=== PATIENT | male | born 1955 | race Caucasian/White ===

== ENCOUNTER 2018-01-15 19:21 | Emergency (ER) | payer BC, SELFPAY ==
[2018-01-15 19:29] VITALS: BP 151/87; PULSE 75; RESP 18; TEMP 36.7; O2SAT 97
--- NOTE | 2018-01-15 19:54 | W.ED.GENAD ---
Discharge Plan Disposition Patient Disposition: HOME Condition: Stable Discharge Details Chief Complaint: Laceration Clinical Impression: Puncture wound of hand, left Primary Care Provider: Anurag Mason ED Provider: Augustus Barnes Home Meds and New Rx's Prescriptions: New amoxicillin-pot clavulanate [Augmentin] 875-125 mg tablet 1 tab PO BID Qty: 10 RF: 0 Continue multivitamin [Daily Multi-Vitamin] 1 EACH tablet 1 ea PO DAILY RF: 0 cholecalciferol (vitamin D3) 1,000 UNIT capsule 3,000 unit PO DAILY RF: 0 tnjqvkav-sgopk-xnw 2-C-D3-kalie [Cdfgdoob-Pclqzs-EDL with vit D] 1 EACH tablet 1 ea PO DAILY RF: 0 fluoxetine 20 MG capsule 20 mg PO DAILY Qty: 90 RF: 3 turmeric root extract 1 EACH capsule 1 ea PO DAILY RF: 0 Discharge Instructions Instructions: Puncture Wound (ED) Discharge Data Discharge Physician: Augustus Barnes Medical Decision Making Patient comes in with left hand discomfort. He states around 10am he was drilling and it slipped and caused him to go into the web space between left thumb and index finger. Dneies hitting bone. He washed it out, had some swelling tonight so came here for concern of possible infection. No discharge and has no redness no exam. HAs no pain over the bone so doubt injury to the bone and full rom so doubt tendon injury. Doesn't appear infected but will provide abx in case he has redness that develops or discharge. Differential Diagnosis puncture wound, cellulitis HPI General Mode of arrival: ambulatory. Date/Time Provider Initiated Documentation: 01/15/18 19:41. Limitations to Documentation: no limitations. Information obtained by: patient. History of Present Illness 62 year old M presents to the emergency department with the chief complaint of left hand injury, described as moderate, with intensity rated at 3. Quality is described as aching, and is localized to the left and upper extremity. Patient reports no radiation. Patient started experiencing this hour(s) (10) and it has been constant. No relieving factors improve symptom(s), No exacerbating factors reported . Patient notes no other symptoms.. Patient did receive the following treatments prior to arrival, none Related Data Home Medications Medication Instructions Recorded Confirmed cholecalciferol (vitamin D3) 3,000 unit PO DAILY 07/31/13 12/02/14 mubvrguw-qzula-akr 2-C-D3-kalie 1 ea PO DAILY 07/31/13 12/02/14 [Oqitovzk-Cyxewx-INJ with vit D] multivitamin [Daily Multi-Vitamin] 1 ea PO DAILY 07/31/13 12/02/14 fluoxetine 20 mg PO DAILY #90 cap 06/20/17 turmeric root extract 1 ea PO DAILY 08/16/17 amoxicillin-pot clavulanate 1 tab PO BID #10 tab 01/15/18 [Augmentin] Previous Rx's Medication Instructions Recorded fluoxetine 20 mg PO DAILY #90 cap 06/20/17 amoxicillin-pot clavulanate 1 tab PO BID #10 tab 01/15/18 [Augmentin] Allergies Allergy/AdvReac Type Severity Reaction Status Date / Time No Known Drug Allergies Allergy Unverified 08/16/17 13:38 General Stated Complaint: Laceration LYNDSAY: 4 Review of Systems Review of Systems All systems reviewed & are unremarkable except as noted in HPI and below Constitutional Denies chills and Denies fever(s) Cardiovascular Denies chest pain and Denies dyspnea Respiratory Denies dyspnea Gastrointestinal Denies vomiting Allergic/Immunologic Reports urticaria PFSH Family History Mother No problems noted. Father No problems noted. Sister Bipolar 1 disorder Sister Asthma Sister No problems noted. Social History Smoking/Tobacco Use Status: Never Surgical History repair fx right small finger fx (03/26/16) Exam Const General: no acute distress Orientation: alert HENMT Head: normal to inspection Ears: external ears normal General nose exam: external nose normal Mouth: moist mucous membranes Eyes General: appearance normal, both eyes and all related structures Neck Neck: normal visual inspection Resp Effort & Inspection: normal respiratory effort and able to speak in complete sentences Cardio Rate: regular rate Skin General skin exam: no rashes or lesions noted Neuro General: alert and oriented x3 Extrem General: normal capillary refill and other (small 0.5cm puncture wound on posterior left hand in web space between thumb and index finger, no redness, full rom and no pain over the bones) Psych Mental Status: mental status grossly normal Course Vital Signs Temperature 36.7 C 01/15/18 19:29 Pulse 75 01/15/18 19:29 Respiratory Rate 18 01/15/18 19:29 Blood Pressure 151/87 H 01/15/18 19:29 Pulse Oximetry 97 01/15/18 19:29 Temperature 36.7 C 01/15/18 19:29 Temperature Source Temporal Artery Scan 01/15/18 19:29 Pulse 75 01/15/18 19:29 Respiratory Rate 18 01/15/18 19:29 Respiratory Effort 01/15/18 19:31 Blood Pressure 151/87 H 01/15/18 19:29 Blood Pressure Position Sitting 01/15/18 19:29 Pulse Oximetry 97 01/15/18 19:29 Oxygen Delivery Method Room Air 01/15/18 19:29 Oxygen Flow Rate 0 01/15/18 19:29
--- NOTE | 2018-01-15 19:58 | ED.GENADUL_ITS ---
Discharge Plan Disposition Patient Disposition: HOME Condition: Stable Discharge Details Chief Complaint: Laceration Clinical Impression: Puncture wound of hand, left Primary Care Provider: Anurag Mason ED Provider: Augustus Barnes Home Meds and New Rx's Prescriptions: New amoxicillin-pot clavulanate [Augmentin] 875-125 mg tablet 1 tab PO BID Qty: 10 RF: 0 Continue multivitamin [Daily Multi-Vitamin] 1 EACH tablet 1 ea PO DAILY RF: 0 cholecalciferol (vitamin D3) 1,000 UNIT capsule 3,000 unit PO DAILY RF: 0 dybnwsxe-yqqoo-jky 2-C-D3-kalie [Sptxxsyg-Djzzsv-TYO with vit D] 1 EACH tablet 1 ea PO DAILY RF: 0 fluoxetine 20 MG capsule 20 mg PO DAILY Qty: 90 RF: 3 turmeric root extract 1 EACH capsule 1 ea PO DAILY RF: 0 Discharge Instructions Instructions: Puncture Wound (ED) Discharge Data Discharge Physician: Augustus Barnes Medical Decision Making Patient comes in with left hand discomfort. He states around 10am he was drilling and it slipped and caused him to go into the web space between left thumb and index finger. Dneies hitting bone. He washed it out, had some swelling tonight so came here for concern of possible infection. No discharge and has no redness no exam. HAs no pain over the bone so doubt injury to the bone and full rom so doubt tendon injury. Doesn't appear infected but will provide abx in case he has redness that develops or discharge. Differential Diagnosis puncture wound, cellulitis HPI General Mode of arrival: ambulatory . Date/Time Provider Initiated Documentation: 01/15/18 19:41 . Limitations to Documentation: no limitations . Information obtained by: patient . History of Present Illness 62 year old M presents to the emergency department with the chief complaint of left hand injury, described as moderate, with intensity rated at 3. Quality is described as aching, and is localized to the left and upper extremity. Patient reports no radiation. Patient started experiencing this hour(s) (10) and it has been constant. No relieving factors improve symptom( s), No exacerbating factors reported . Patient notes no other symptoms.. Patient did receive the following treatments prior to arrival, none Related Data Home Medications Medication Instructions Recorded Confirmed cholecalciferol (vitamin D3) 3,000 unit PO DAILY 07/31/13 12/02/14 jwloviag-jisim-frm 2-C-D3-kalie 1 ea PO DAILY 07/31/13 12/02/14 [Kgwnknwf-Kabwrg-CIF with vit D] multivitamin [Daily Multi-Vitamin] 1 ea PO DAILY 07/31/13 12/02/14 fluoxetine 20 mg PO DAILY #90 cap 06/20/17 turmeric root extract 1 ea PO DAILY 08/16/17 amoxicillin-pot clavulanate 1 tab PO BID #10 tab 01/15/18 [Augmentin] Previous Rx's Medication Instructions Recorded fluoxetine 20 mg PO DAILY #90 cap 06/20/17 amoxicillin-pot clavulanate 1 tab PO BID #10 tab 01/15/18 [Augmentin] Allergies Allergy/AdvReac Type Severity Reaction Status Date / Time No Known Drug Allergies Allergy Unverified 08/16/17 13:38 General Stated Complaint: Laceration LYNDSAY: 4 Review of Systems Review of Systems All systems reviewed & are unremarkable except as noted in HPI and below Constitutional Denies chills and Denies fever(s) Cardiovascular Denies chest pain and Denies dyspnea Respiratory Denies dyspnea Gastrointestinal Denies vomiting Allergic/Immunologic Reports urticaria PFSH Family History Mother No problems noted. Father No problems noted. Sister Bipolar 1 disorder Sister Asthma Sister No problems noted. Social History Smoking/Tobacco Use Status: Never Surgical History repair fx right small finger fx (03/26/16) Exam Const General: no acute distress Orientation: alert HENMT Head: normal to inspection Ears: external ears normal General nose exam: external nose normal Mouth: moist mucous membranes Eyes General: appearance normal, both eyes and all related structures Neck Neck: normal visual inspection Resp Effort & Inspection: normal respiratory effort and able to speak in complete sentences Cardio Rate: regular rate Skin General skin exam: no rashes or lesions noted Neuro General: alert and oriented x3 Extrem General: normal capillary refill and other (small 0.5cm puncture wound on posterior left hand in web space between thumb and index finger, no redness, full rom and no pain over the bones) Psych Mental Status: mental status grossly normal Course Vital Signs Temperature 36.7 C 01/15/18 19:29 Pulse 75 01/15/18 19:29 Respiratory Rate 18 01/15/18 19:29 Blood Pressure 151/87 H 01/15/18 19:29 Pulse Oximetry 97 01/15/18 19:29 Temperature 36.7 C 01/15/18 19:29 Temperature Source Temporal Artery Scan 01/15/18 19:29 Pulse 75 01/15/18 19:29 Respiratory Rate 18 01/15/18 19:29 Respiratory Effort 01/15/18 19:31 Blood Pressure 151/87 H 01/15/18 19:29 Blood Pressure Position Sitting 01/15/18 19:29 Pulse Oximetry 97 01/15/18 19:29 Oxygen Delivery Method Room Air 01/15/18 19:29 Oxygen Flow Rate 0 01/15/18 19:29
[2018-01-15 20:08] VITALS: BP 138/80; PULSE 68; RESP 18; TEMP 36.8; O2SAT 99
== END 2018-01-15 20:08 | disposition home or self-care (01) ==
PROVIDERS: Emergency Provider Emergency Medicine; PCP Family Medicine
DX: S61.432A Puncture wound without foreign body of left hand, initial encounter (principal); W31.1XXA Contact with metalworking machines, initial encounter
CPT/HCPCS: 99283

== ENCOUNTER 2018-04-21 11:12 | Outpatient (CLI) | payer BC, SELFPAY ==
[2018-04-21 11:56] LABS: Bilirubin Negative (Negative); Blood Trace-intact (Negative); Clarity Clear; Glucose Negative (Negative); Ketones Negative (Negative); Leukocyte Esterase Negative (Negative); Nitrite Negative (Negative); Urobilinogen 0.2 EU/dL (Up TO 0.2); pH 5.5 (5-8)
[2018-04-21 12:36] LABS: Bacteria Rare HPF (Negative); C & S Indicated? No; Casts Negative LPF (Negative); Crystals Negative HPF (Negative); Epithelial Cells Rare HPF (Negative); Mucus Trace (Negative); WBC Negative HPF (0-5)
== END 2018-04-21 11:32 ==
PROVIDERS: PCP Family Medicine; Visit Provider Family Medicine
DX: N39.0 Urinary tract infection, site not specified (principal)
CPT/HCPCS: 81003; 81015

== ENCOUNTER 2018-10-10 12:04 | Outpatient (REF) | payer BC, SELFPAY ==
[2018-10-16 15:05] LABS: Source: Kidney
== END 2018-10-10 12:24 ==
LOC: LBN 12:04
PROVIDERS: PCP Nurse Practitioner; Visit Provider Nurse Practitioner
DX: N20.0 Calculus of kidney (principal)
CPT/HCPCS: 82365

== ENCOUNTER 2018-12-08 08:08 | Outpatient (CLI) | payer BC, SELFPAY ==
[2018-12-08 09:53] LABS: ALT 36 U/L (16-63); AST 22 U/L (15-37); Albumin 3.6 g/dL (3.4-5.0); Alkaline Phosphatase 65 U/L (46-116); Anion Gap 6.7 mmol/L (3-11); BUN 17 mg/dL (7-18); Bilirubin, Total 0.2 mg/dL (0.2-1.0); CO2 30.3 mmol/L (21.0-32.0); CREATININE 1.04 mg/dL (0.70-1.30); Calcium 8.9 mg/dL (8.5-10.1); Calculated LDL 170 mg/dL; Chloride 105 mmol/L (98-107); Cholesterol 243 mg/dL (50-200); Glucose 93 mg/dL (70-100); HDL Cholesterol 46 mg/dL (40-60); Potassium 4.3 mmol/L (3.5-5.1); Sodium 142 mmol/L (136-145); Total Protein 7.2 g/dL (6.4-8.2); Triglyceride 136 mg/dL (30-150)
== END 2018-12-08 08:28 ==
PROVIDERS: PCP Nurse Practitioner; Visit Provider Nurse Practitioner
DX: E78.5 Hyperlipidemia, unspecified (principal)
CPT/HCPCS: 36415; 80053; 80061

== ENCOUNTER 2018-12-08 08:22 | Outpatient (REF) | payer BC, SELFPAY ==
[2018-12-08 11:04] LABS: Creatinine,Urine 155.43 mg/dL; Sodium, Urine 140 mmol/L
[2018-12-08 11:06] LABS: Creatinine,24hr Ur 1.55 g/24hr (0.95-2.49); Total Volume 1025 ml
[2018-12-08 11:07] LABS: CLEAVED CELLS 144 mmol/24h (40-220); Total Volume 1025 ml
[2018-12-09 09:17] LABS: Magnesium 24hr Urine 136.3 mg/24h (73.0-122.0); Magnesium Random Urine 13.3 mg/dl; Phosphorus Urine 83.5 mg/dl; Phosphorus Urine 24hr 0.9 g/24h (0.4-1.3); Uric Acid Urine 52.2 mg/dl; Uric Acid Urine 24hr 535 mg/24h (250-750)
[2018-12-09 09:21] LABS: Calcium Urine 20.8 mg/dl; Calcium Urine 24 hr 213 mg/24hr (100-300)
[2018-12-09 17:07] LABS: Citrate Excretion, 24hr, U 449 mg/24 h; Urine Volume 1025 mL
[2018-12-09 19:19] LABS: Oxalate Conc (mmol/L) 0.17 mmol/L; Oxalate, U 0.17 mmol/24 h (0.11-0.46); Urine Volume 1025 mL
== END 2018-12-08 08:42 ==
LOC: LBN 08:22
PROVIDERS: Nurse Practitioner Gerontology; PCP Nurse Practitioner; Visit Provider Nurse Practitioner
DX: Z87.442 Personal history of urinary calculi (principal)
CPT/HCPCS: 82507; 83735; 81050; 82340; 82570; 83945; 84105; 84300; 84560

== ENCOUNTER 2020-06-27 02:31 | Outpatient (CLI) | payer BC, SELFPAY ==
[2020-06-27 09:02] LABS: ALT 34 U/L (16-63); AST 23 U/L (15-37); Albumin 3.4 g/dL (3.4-5.0); Alkaline Phosphatase 60 U/L (46-116); Anion Gap 5.2 mmol/L (3-11); BUN 16 mg/dL (7-18); Bilirubin, Total 0.4 mg/dL (0.2-1.0); CO2 28.8 mmol/L (21.0-32.0); Calcium 8.5 mg/dL (8.5-10.1); Calculated LDL 173 mg/dL (<100); Chloride 106 mmol/L (98-107); Cholesterol 237 mg/dL (<200); Glucose 90 mg/dL (74-106); HDL Cholesterol 48 mg/dL (40-60); Sodium 140 mmol/L (136-145); TSH (W/Ref FT4) 2.95 uIU/mL (0.36-3.74); Total Protein 6.8 g/dL (6.4-8.2); Triglyceride 80 mg/dL (<150)
== END 2020-06-27 02:32 | disposition home or self-care (01) ==
LOC: LBO 02:31
PROVIDERS: PCP Nurse Practitioner; Visit Provider Nurse Practitioner
DX: Z00.00 Encounter for general adult medical examination without abnormal findings (principal); L85.3 Xerosis cutis; Z13.220 Encounter for screening for lipoid disorders
CPT/HCPCS: 36415; 80053; 80061; 84443

== ENCOUNTER 2020-11-21 07:13 | Day surgery (SDC) | payer MEDICARE, SELFPAY ==
--- NOTE | 2020-11-20 14:59 | PDOC.DSDIS_ITS ---
Discharge Plan Disposition Patient Disposition: HOME Condition: Good Discharge Details Reason For Visit: colon scope Attending Provider: Shira Rivas Primary Care Provider: Lindsay Rendon Home Meds and New Rx's Prescriptions: Continued cholecalciferol (vitamin D3) 125 mcg (5,000 unit) capsule 125 mcg PO DAILY RF: 0 glucosamine sulfate 2KCl [Glucosamine Relief] 1,000 mg tablet 1,000 mg PO BID RF: 0 bergamot capsule 1 cap PO BID RF: 0 multivitamin [Daily Multi-Vitamin] 1 EACH tablet 1 ea PO DAILY RF: 0 fluoxetine 20 mg capsule 20 mg PO DAILY Qty: 90 RF: 3 niacin [Niaspan Extended-Release] 500 mg tablet extended release 24 hr 500 mg PO DAILY Qty: 90 RF: 3 Discontinued polyethylene glycol 3350 17 gram/dose powder 238 g PO ONCE Qty: 238 RF: 0 bisacodyl [Dulcolax (bisacodyl)] 5 mg tablet,delayed release (DR/EC) 5 mg PO ONCE Qty: 4 RF: 0 Discharge Instructions Additional Instructions: DSU Colonoscopy Post- Op Instructions Instructions for Everyone who is given Anesthesia: For your safety, please do the following for the next twenty-four (24) hours: *Do Not operate a motor vehicle (car, truck, motorcycle, etc.) *Do Not drink alcoholic beverages or use any recreational drugs for the first 24 hours or while taking pain medications. The medications in your body may have a reaction that can be dangerous. *Do Not make any important decisions or sign any important papers. Findings: Very few small scattered diverticula in the sigmoid colon. Otherwise normal Follow up: If still healthy for anesthesia, repeat colonoscopy in 10 years time 1. No lifting over 20 pounds or strenuous activity for the first 24 hours after your procedure. After 24 hours there are no restrictions on your activity but you may feel fatigued for a few days. 2. After you arrive home you may have a light meal and return to your normal diet as you can tolerate it without feeling sick to your stomach. 3. You may have a bloated, gaseous feeling in your belly (abdomen) after a colonoscopy. Passing gas and belching will help. Walking or lying down on your left side with your knees flexed may relieve the discomfort. Call the office at [phone] (Office) or [phone] (Hospital) right away if you notice any of the following: a.Vomiting of blood or ?coffee ground stools?. b.Rectal bleeding 1Tbsp, blood clots or continuous bleeding. c.Severe belly (abdominal) pain. d.A hard distended belly (abdomen) and an inability to pass gas. 4. Please don?t expect to have a normal BM (bowel movement) for 2-3 days after your procedure. 5. If there are questions regarding the findings of your procedure, please contact your doctor 6. If you are unable to contact your doctor with a problem, contact the hospital at [phone]. 7. Continue all your regular medications unless directed otherwise. I understand the above instructions and have no questions. Signature of Patient or Adult Escort Name of Responsible Adult Escort Signature of Nurse Date/Time Activity:: see above Diet:: see above Discharge Orders Discharge Orders: Discharge Order (Routine); Ordered 11/20/20 Ordered By: Shira Rivas DS: Diagnosis Discharge Diagnosis (1) Diverticula of colon: Status: Acute
--- NOTE | 2020-11-20 14:59 | W.COLOREPORT ---
Date of service: 11/21/20 Time of Service: 08:45 Colonoscopy Report Date of procedure: 11/21/20 Pre-op diagnosis general: screen Post-op diagnosis procedure note: other Surgeon: Shira Rivas Anesthesia Type: General:No Airway Estimated blood loss (mL): 0 Pathology: none sent Complications: None Disposition: same day Prep: Miralax/Dulcolax Retraction Time: 8 Procedure Description: After informed consent was obtained the patient was taken to the procedure room and placed in a left decubitous position. Monitors were applied and a time out was done. The patients name, date of , procedure, allergies to medications and metal in their body was reviewed. The patient was then sedated. Once sedated and comfortable a rectal exam was done. External exam-small external tag internal exam revealed a normal sphincter tone and no palpable masses. The scope was then introduced and retrofelexed. No without good internal hemorrhoids were identified. The scope was then advanced to the cecum difficulty. The TI and appendiceal orifice were identified. The prep was done. The scope was then slowly retracted 8 minutes back into the rectum. There are no polyps or AVMs visualized today. He has a few small scattered diverticula in the sigmoid colon of no consequence. There is no signs of active bleeding or infection.. The scope was removed and the patient was woken up and taken back to Same day surgery in stable condition. The patient tolerated the procedure well and there were no immediate complications. Follow up: The patient should follow up in 10 years, if still healthy for anesthesia, unless they develop changes in bowel habits or other new gastrointestinal complaints.
--- NOTE | 2020-11-20 19:03 | W.ANESPRE ---
General Info Date of Service Date Performed: 11/21/20 Height: 5 ft 5.5 in Weight: 63.673 kg Body Mass Index (BMI): 23.0 Surgical Procedure: Operation Date: 11/21/20 08:20 Proposed Procedures Side Surgeon elisa Rivas, DO Meds Allergies and Home Medications Allergies Allergy/AdvReac Type Severity Reaction Status Date / Time No Known Drug Allergies Allergy Verified 11/21/20 07:29 Home Medication Medication Instructions Recorded multivitamin [Daily Multi-Vitamin] 1 ea PO DAILY 07/31/13 fluoxetine 20 mg capsule 20 mg PO DAILY #90 cap 01/07/20 niacin 500 mg tablet,extended 500 mg PO DAILY #90 tab 09/30/20 release 24 hr bergamot 1 cap PO BID 10/31/20 bisacodyl 5 mg tablet,delayed 5 mg PO ONCE #4 tab 10/31/20 release cholecalciferol (vitamin D3) 125 125 mcg PO DAILY 10/31/20 mcg (5,000 unit) capsule glucosamine sulfate 2KCl 1,000 mg 1,000 mg PO BID 10/31/20 tablet polyethylene glycol 3350 17 238 g PO ONCE #238 g 10/31/20 gram/dose oral powder Current Visit Medications: Current Medications Generic Name Dose Route Start Last Admin Trade Name Freq PRN Reason Stop Dose Admin Hyoscyamine Sulfate 0.125 mg 11/20/20 14:59 Hyoscyamine 0.125 Mg Sl/Oral/Chew SL DIRECTED PRN Ringer's Solution 1,000 mls @ 80 mls/hr 11/21/20 06:00 IV 12/20/20 23:59 [facility] IV Miscellaneous Supplies 1 each 11/21/20 06:00 Iv Access IV 12/20/20 23:59 DIRECTED JUDITH Ondansetron HCl 4 mg 11/20/20 14:59 Ondansetron 4 Mg/2 Ml Vial IVP Q4H PRN PRN Nausea / Vomiting Sodium Chloride 0 ml 11/21/20 06:00 Normal Saline Flush 10 Ml Syr IV 12/20/20 23:59 PRN PRN Sodium Chloride 0 ml 11/21/20 06:00 Normal Saline 10 Ml Vial IJ 12/20/20 23:59 DIRECTED PRN Sterile Water 0 ml 11/21/20 06:00 Water,Injection,Sterile 10 Ml Vial IJ 12/20/20 23:59 DIRECTED PRN PFSH Active Problems Active Problems: Problem Status Onset Code Dry skin L85.3 Screening, lipid Z13.220 Colon cancer screening Z12.11 Routine medical exam Z00.00 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 Kidney stones, calcium oxalate Encounter for routine history and physical examination 02/08/12 Z00.00 Sensorineural hearing loss (SNHL) of both ears 01/08/16 H90.3 Other and unspecified hyperlipidemia 04/03/99 E78.5 Anxiety state, unspecified 11/16/06 F41.1 Medical History Medical History (Updated 11/21/20 @ 07:30 by Junie Hawk RN) Anxiety state, unspecified (11/16/06) Generalized Anxiety Disorder; fluoxetine effective Epicondylitis, medial humeral Left Nasal septal defect surgery Other and unspecified hyperlipidemia (04/03/99) 6% risk, goal LDL <130, rx if >190: lifestyle Sensorineural hearing loss (SNHL) of both ears (01/08/16) Tip Farmer, ENT Surgical History Surgical History repair fx right small finger fx (03/26/16) Tobacco Smoking/Tobacco Use Status: Never Passive smoking exposure: Yes (childhood parents until age 18) Alcohol Alcohol Intake: never Substance Use Substance use: Never Substance use type: does not use Vital Signs and Lab Results Vital Signs Most Recent Vital Signs in EMR: Temp Pulse Resp BP Pulse Ox 36.0 C L 61 15 134/95 H 95 11/21/20 07:24 11/21/20 07:24 11/21/20 07:24 11/21/20 07:24 11/21/20 07:24 Lab Results Blood Type / Crossmatch: No Data to Display Complete Blood Count: No Data to Display Complete Metabolic Panel: No Data to Display Liver Function Panel: No Data to Display Coagulation Panel: No Data to Display Cardiac Panel: No Data to Display Arterial Blood Gas: No Data to Display Venous Blood Gas: No Data to Display Pancreas Panel: No Data to Display Thyroid Panel: No Data to Display Infectious Disease: No Data to Display Blood Cultures: No Data to Display Toxicology Panel: No Data to Display Anesthesia Assessment and Plan Anesthesia History Personal History: No History of Anesthesia Complications Family History: No Family History of Anesthesia Complications Exercise Tolerance Exercise Tolerance: Metabolic Equivalents>4 Pertinent Negatives Pertinent Negatives: No Symptoms of GERD, No Major Cardiovascular Symptoms or Complaints, No Major Pulmonary Symptoms or Complaints and No History of CVA/TIA Cardiac & Pulmonary Exam Cardiac Exam: Normal S1/S2 Heart Sounds Pulmonary Exam: Clear Bilateral Breath Sounds Airway Exam Known Difficult Airway: No Mallampati Class: 1 Mouth Opening: Normal (> 3cm) Thyromental Distance: Less than 3 cm Neck Range of Motion: Full ROM Neck Circumference: Normal Teeth Condition: Normal Dentition ASA Classification ASA Score: ASA 2 Emergency Case?: No NPO Status NPO Status: NPO Clears >2 hours, Solids >8 hours Anesthesia Plan Resuscitation Status: Full Code Anesthesia Technique: General Anesthesia Airway Planned: Natural Airway Monitors Used: Standard Monitors Preoperative Comments:: 65 yo male for screening colo. PMHX anxiety. no major hx noted.
[2020-11-21 07:24] VITALS: BP 134/95; PULSE 61; RESP 15; TEMP 36; O2SAT 95
[2020-11-21] MEDS: Lactated Ringers 1,000 ML 80 ML IV (07:40)
[2020-11-21 08:17] VITALS: BMI 23.0
[2020-11-21 08:47] VITALS: BP 101/57; PULSE 55; RESP 16; TEMP 36.8; O2SAT 96
[2020-11-21 09:24] VITALS: BP 118/77; PULSE 54; RESP 16; TEMP 36.3; O2SAT 96
--- NOTE | 2020-11-21 10:13 | W.ANESPOSTOP ---
Postoperative Evaluation Date, Time and Location Date Performed: 11/21/20 Time Performed: 09:31 Patient Location: Day Surgery Unit Vital Signs Most Recent Imported Vital Signs: Most Recent Vital Signs Temp Pulse Resp BP Pulse Ox 36.3 C L 54 L 16 118/77 96 11/21/20 09:24 11/21/20 09:24 11/21/20 09:24 11/21/20 09:24 11/21/20 09:24 Pain Score Most Recent Pain Score: Most Recent Pain Score Pain Level 0 11/21/20 09:24 Assessment Mental Status: Awake (Alert & Oriented to Patient Baseline) Airway and Respiratory Function: Patent airway with normal (patient baseline) respiratory exam Cardiovascular Function: Hemodynamically Stable Hydration Status: Adequately Hydrated Nausea & Vomiting: No Nausea or Vomiting Pain: Pt. Denies Any Pain Peripheral Nerve Block: Patient did not receive a nerve block
== END 2020-11-21 09:46 | disposition home or self-care (01) ==
PROVIDERS: PCP Nurse Practitioner; Visit Provider Surgery
PROC: 0DJD8ZZ Inspection of Lower Intestinal Tract, Via Natural or Artificial Opening Endoscopic (ICD-10-PCS; CPT 45378; principal; 2020-11-21 08:15)
DX: Z12.11 Encounter for screening for malignant neoplasm of colon (principal)
CPT/HCPCS: G0121; J2001

== ENCOUNTER 2020-12-19 02:43 | Outpatient (CLI) | payer MEDICARE, SELFPAY ==
[2020-12-19 11:15] LABS: Calculated LDL 191 mg/dL (<100); Cholesterol 260 mg/dL (<200); HDL Cholesterol 48 mg/dL (40-60); Triglyceride 109 mg/dL (<150)
[2020-12-19 17:54] LABS: PSA, Screening 0.7 ng/mL (0.0-4.5)
== END 2020-12-19 02:44 | disposition home or self-care (01) ==
LOC: LBO 02:43
PROVIDERS: PCP Nurse Practitioner; Visit Provider Nurse Practitioner
DX: E78.5 Hyperlipidemia, unspecified (principal); Z12.5 Encounter for screening for malignant neoplasm of prostate
CPT/HCPCS: 36415; 80061; 84153

== ENCOUNTER 2021-06-16 16:09 | Outpatient (CLI) | payer MEDICARE, SELFPAY ==
--- NOTE | 2021-06-16 14:30 | DI.RAD_ITS ---
Exam(s) XR SHOULDER RT COMPLETE 2+V EXAM: XR SHOULDER RT COMPLETE 2+V CLINICAL HISTORY: pain m25.511 pain rt shoulder. TECHNIQUE: 2D digital imaging was performed. Five views. COMPARISON: No exams were available for comparison FINDINGS: BONES: No acute fracture is present. No bony destructive lesion is seen. JOINTS: No dislocation present. Minimal spinal spurring AC joint and glenoid. Spurring at the lesse r tuberosity. Degenerative cyst near lesser tuberosity. Degenerative cyst in glenoid. SOFT TISSUE: Normal. IMPRESSION: Mild degenerative changes. DATA REPOSITORY: RADIATION DOSE DELIVERED:
== END 2021-06-16 16:29 ==
PROVIDERS: PCP Nurse Practitioner; Visit Provider Nurse Practitioner
DX: M25.511 Pain in right shoulder (principal); M75.81 Other shoulder lesions, right shoulder
CPT/HCPCS: 73030

== ENCOUNTER 2021-08-06 03:43 | Outpatient (CLI) | payer MEDICARE, SELFPAY ==
[2021-08-06 07:18] LABS: Abs Immature Grans 0.02 10^3/uL (0.0-0.06); Absolute Basophil Count 0.05 10^3/uL (0.0-0.2); Absolute Eosinophil Count 0.37 10^3/uL (0.0-0.7); Absolute Lymphocyte Count 2.44 10^3/uL (1.2-3.4); Absolute Monocyte Count 0.52 10^3/uL (0.1-0.8); Absolute Neutrophil Count 2.44 10^3/uL (1.2-6.7); Basophils % 0.9; Eosinophils % 6.3; HCT 48.2 % (40.0-50.0); HGB 15.8 g/dL (13.5-17.5); Immature Grans % 0.3; Lymphocytes % 41.8; MCH 31.5 pg (27.0-33.0); MCHC 32.8 % (32.0-36.0); MCV 96 fL (80-95); MPV 9.1 fL (8.0-11.0); Monocytes % 8.9; Neutrophils % 41.8; Platelet Count 228 10^3/uL (130-400); RBC 5.02 10^6/uL (4.36-5.78); RDW 12.3 % (11.8-14.1); RDW-SD 43.8 fL; WBC 5.84 10^3/uL (4.4-10.8)
[2021-08-06 08:25] LABS: ALT 34 U/L (16-63); AST 25 U/L (15-37); Albumin 3.7 g/dL (3.4-5.0); Alkaline Phosphatase 66 U/L (46-116); Anion Gap 7.2 mmol/L (3-11); BUN 15 mg/dL (7-18); Bilirubin, Total 0.4 mg/dL (0.2-1.0); CO2 30.8 mmol/L (21.0-32.0); CREATININE 1.1 mg/dL (0.70-1.30); Calcium 8.6 mg/dL (8.5-10.1); Calculated LDL 167 mg/dL (<100); Chloride 104 mmol/L (98-107); Cholesterol 242 mg/dL (<200); Glucose 93 mg/dL (74-106); HDL Cholesterol 46 mg/dL (40-60); Potassium 4.3 mmol/L (3.5-5.1); Sodium 142 mmol/L (136-145); Total Protein 7.2 g/dL (6.4-8.2); Triglyceride 148 mg/dL (<150)
== END 2021-08-06 03:44 | disposition home or self-care (01) ==
LOC: LBO 03:43
PROVIDERS: PCP Nurse Practitioner; Visit Provider Nurse Practitioner
DX: E78.5 Hyperlipidemia, unspecified (principal)
CPT/HCPCS: 36415; 80053; 80061; 85025

== ENCOUNTER 2022-01-29 23:44 | Emergency (ER) | payer MEDICARE, SELFPAY ==
--- NOTE | 2022-01-29 23:45 | RT.EKG_ITS ---
APPROVED REPORT Exam: Resting ECG Reason for Exam: chest pain Patient Location: E HR:61 bpm ECG Measurements Heart Rate [address] 192 P 55 QRSd 91 QRS 61 QT 404 T 40 QTc 408 Conclusion Sinus rhythm...normal P axis, V-rate 60- 99 Left ventricular hypertrophy...multiple voltage criteria st depression v4-5, 1mm st elev v2
[2022-01-29 23:53] VITALS: BP 199/108; PULSE 63; RESP 18; TEMP 36; O2SAT 99
[2022-01-29 23:58] VITALS: RESP 18
[2022-01-29 23:59] VITALS: BP 199/108; PULSE 61; PULSE 75; RESP 15; O2SAT 99
[2022-01-30] VITALS (28 sets, daily range): BP systolic 146–203; BP diastolic 88–108; PULSE 54–74; RESP 9–19; TEMP 36.6; O2SAT 93–100
--- NOTE | 2022-01-30 | DI.CT_ITS ---
Exam(s) CT THORAX ABD/PEL CTA EXAM: CT THORAX ABD/PEL CTA CLINICAL HISTORY: central chest pressure, hypertension. TECHNIQUE: Imaging Protocol: Axial CT angiography was performed with multi-slice acquisition and m ulti-planar and/or 3D reconstructions. CONTRAST MATERIAL: Intravenous: Omnipaque 350 contrast volume:90 mL Oral: No COMPARISON: CT ABD PELVIS WITH CONTRAST from 12/02/2014 FINDINGS: CHEST: Tracheobronchial tree: Patent where visualized. Pulmonary parenchyma: No consolidation or dominant measurable mass. No architectural distortion. Ther e is dependent atelectasis. Pulmonary Arteries: The pulmonary arteries are inadequately opacified for evaluation of pulmonary emb olic disease. Mediastinum and Damaris: No dominant adenopathy or fluid collection. The esophagus is unremarkable. Visualized thyroid: Unremarkable. Pleura: No effusion or pneumothorax. Heart: The heart is not dilated. Coronary artery calcifications and/or stents are seen. No pericardi al effusion. Aorta: Thoracic aorta non-dilated. No evidence of dissection. Mild atherosclerosis. Soft Tissues: Unremarkable. Bones: Within normal limits for the patient's age.There is an old T7 compression deformity. ABDOMEN AND PELVIS: Abdomen: Celiac axis/mesenteric arteries: No evidence of occlusion or significant stenosis. Renal Arteries: No evidence of occlusion or significant stenosis. Aorta: No evidence of occlusion or significant stenosis. No aneurysm or dissection. Mild atheroscl erosis. Pelvis: Iliac Arteries: No evidence of occlusion or significant stenosis. Mild atherosclerosis. Common Femoral Arteries: No evidence of occlusion or significant stenosis. ABDOMEN: Liver: Normal density. There are 2 stable hypodense lesions seen in the liver. The largest is anteri janusz and peripherally and is unchanged compared to 2015. These likely reflect cysts. Gallbladder and Biliary Tract: No radiodense calculus or dilation. Pancreas: Normal density, no abnormal calcifications or inflammatory process. Spleen: Normal. Adrenals: No masses seen. Kidneys: Normal size, contour and axis. Nonobstructing stone is seen in the left kidney. No masses s een. Bowel: No obstruction or bowel wall thickening. Appendix is unremarkable. Peritoneal Cavity: No ascites, collection or mesenteric inflammatory response. No free air. Lymph Nodes: Within normal limits. Bones: Within normal limits for the patient's age. Soft Tissues: Unremarkable. PELVIS: Bladder: Symmetric distention, no gross wall thickening. Reproductive Organs: Unremarkable as visualized. Lymph Nodes: Within normal limits. Bones: Within normal limits for the patient's age. IMPRESSION: 1. No evidence of aortic dissection or aneurysm. No significant arterial stenosis or occlusion. 2. No acute pulmonary process. 3. No acute abdominal or pelvic process. RADIATION DOSE DELIVERED: 840.25mGy.cm Total DLP DATA REPOSITORY: All CT scans at this facility are submitted to the National Radiology Data Registry (NRDR) Dose Index Registry (DIR) with the [employer] (ACR). RADIATION OPTIMIZATION: All CT scans at this facility use at least one of these dose optimization te chniques: automated exposure control; mA and/or kV adjustment per patient size (includes targeted exa ms where dose is matched to clinical indication); or iterative reconstruction.
--- OUTSIDE RECORDS SUMMARY | 2022-01-30 00:17 | XMS_ITS | Clinical Summary ---
:1955 Author Organization [facility] Address [facility] [place] [address] Care Team Providers Name Role Phone Lindsay Rendon APRN Primary Care Provider Allergies No known active allergies Medications Medication Sig Dispensed Refills Start Date End Date Status FLUoxetine (PROZAC) 20 0 05/08/2009 Active mg capsule niacin (NIASPAN ER) take 1 tablet by 0 01/24/2018 Active 500 mg Tablet mouth once daily Sustained Release 24 SWALLOW WHOLE DO hr NOT CRUSH,BREAK,DISSOL VE OR OPEN Social History Tobacco Use Types Packs/Day Years Used Date Never Smoker Smokeless Tobacco: Never Used Sex Assigned at Date Recorded Not on file Plan of Treatment Health Maintenance Due Date Last Done Comments Covid-19 Vaccine (#1) 05/07/1956 Hepatitis C Screening 11/04/1973 Lipid Screening 11/04/1973 Tdap adult 11/04/1974 Tetanus vaccine 11/04/1974 Colonoscopy 11/04/2000 Zoster vaccine (1 of 2) 11/04/2005 Advance Directive 11/04/2010 Pneumoccocal Vaccine: 65+ (1 - PCV) 11/04/2020 Influenza (Flu) vaccine (1 of 1 - Influenza standard 12/03/2021 series) Insurance Payer Benefit Plan / Subscriber ID Effective Dates Phone Addre ss Type Group [employer] [id number] 2019-Present [address] [place] [address] Care Teams Corn Grower Relationship Specialty Start Date End Date Lindsay Rendon, SAUL PCP - General Internal Medicine 04/18/[address] [place] [address]
--- OUTSIDE RECORDS SUMMARY | 2022-01-30 00:17 | XMS_ITS | Encounter Summary ---
:1955 Author Organization [place] [address] Care Team Providers Name Role Phone Lindsay Rendon APRN Primary Care Provider Encounter Details Date Type Department Care Team Description 06/25/2019 Public [facility] Contact with/suspected [facility] coronavirus (COVID-19) [place] [address] Social History Tobacco Use Types Packs/Day Years Used Date Never Smoker Smokeless Tobacco: Never Used Sex Assigned at Date Recorded Not on file documented as of this encounter Progress Notes Garima De Jesus APRN - 06/25/2019 1:40 PM EDT Results called to patient documented in this encounter Plan of Treatment Not on filedocumented as of this encounter Procedures Procedure Name Priority Date/Time Associated Diagnosis Comme nts HC SARS-COV-2 STAT 06/25/2019 11:00 AM Contact Results for this (COVID-19) EDT with/suspected procedure are in (MOLECULAR exposure to novel the result s PATHOLOGY) coronavirus section. (COVID-19) documented in this encounter Results COVID-19 PCR (06/25/2019 11:00 AM EDT) [facility] Method Time Signature SARS-CoV-2 Not Detected Not Detected DORIS RNA [facility] Comment: This result should be interpreted in com bination with the clinical observations, patient history and epidem iological information. Testing for SARS-CoV-2 (Severe acute respiratory syn drome coronavirus 2, formerly known as 2019 novel coronavirus or 2019-nCoV) to aid in the diagnosis of COVID-19 is performed using the Tripath[employer] RealTime SARS -CoV-2 as authorized by the FDA Emergency Use Authorization (EUA). This EUA assay is intended for In-vitro Diagnostic (IVD) use with respiratory sp ecimens such as nasopharyngeal swabs collected from individuals during the ac [place] phase of infection. This assay is performed based on the instructions for use provided by the [employer] [facility] and additional guidance provided by CDC and FDA. Testing is performed in the [facility] Laboratory within the Department of Pathology and Laboratory Medicine at [facility], certified under the Clinical Laboratory Improvement Amendments of 1988 (CLIA), 42 U.S.C. ?? 263a, to perform high compl exity tests. Assay performance has been verified according to clinical laborator y regulatory requirements. Test results are provided above. A resul t of ? Not Detected? indicates that the viral RNA target is not present but does not preclude SARS-CoV-2 infection. False negative results may occur if a sp ecimen is improperly collected, transported or handled; if amplification inhibitors are present; or if inadequate numbers of viral particles ar e present in the specimen. A result of ? Detected? suggests a current or recent infection and the patient is presumed to be infected. As required or requested by public health authorities, positive specimens may be sent for additional annmarie ting. Positive and negative predictive values for this test are highly dependen t on disease prevalence. A result of ? Invalid? indicates that neither the viral RNA targets nor the internal control target was detected. An invalid result s uggests the presence of inhibitors. Recollection is recommended in the case of an invalid result. CDC COVID-19 criteria for testing on hum an specimens and clinical management guidance information are available at th e CDC Coronavirus Disease 2019 (COVID-19) webpage under ? Information for Healthcare Professionals? (https://www.cdc.gov/coronavirus/2019-nc ov/hcp/index.html) SARS-Cov-2 RNA Source DIGITAL MEASUREMENT ADVISOR Swab [facility] Specimen (Source) Anatomical Collection Method Collection Time Re ceived Time Location / / Volume Laterality Nasopharyngeal swab 06/25/2019 11:00 06/03 (specimen) AM EDT 1:52 PM EDT Resulting Agency Comment Spec In Lab Garima De Jesus APRN MICROBIOLOGY - GENERAL ORDER VIPUL Performing Organization Address City/State/[place] [address] documented in this encounter Visit Diagnoses Diagnosis Exposure to 2018 novel coronavirus documented in this encounter Care Teams Property Developer Relationship Specialty Start Date End Date Lindsay Rendon APRN PCP - General Internal Medicine 04/18/[address] [place] [address] documented as of this encounter
--- OUTSIDE RECORDS SUMMARY | 2022-01-30 00:17 | XMS_ITS | Encounter Summary ---
:1955 Author Organization [facility] [place] [address] Care Team Providers Name Role Phone Anurag Flaherty MD Primary Care Provider [phone] Reason for Visit Reason Comments Skin Lesion Encounter Details Date Type Department Care Team Description 12/28[facility]2016 [facility] [place] (actinic keratosis[facility] Seborrheic keratosis; [address] [place]; [place] [address] [facility] Jeffries angioma; [phone] RD-DERMATOLOGY Multiple benign nevi [place], [place] [address] Social History Tobacco Use Types Packs/Day Years Used Date Never Assessed Sex Assigned at Date Recorded Not on file documented as of this encounter Patient Instructions Patient InstructionsFrida Rangel - 12/28/2016 10:45 AM EDT Sun Protection Exposure to ultraviolet (UV) light--from the sun or tanning beds--is the most common modifiable riskfactor for skin cancer. In fact, most skin cancers are found in locations where sun exposure is highest (e.g., face, ears, and hands). Furthermore, UV exposure is associated with skin aging, including wrinkles, brown spots, and leathery skin. Recommendations ?? Generously apply a broad-spectrum water-resistant sunscreen with a Sun Protection Factor (SPF) of30 or more to all exposed skin. ?? Reapply sunscreen every 2 hours, even on cloudy days, and after swimming or sweating. ?? Preferred sunscreens: Sunscreens work by either forming a physical or a chemical barrier to ultraviolet light. Zinc oxide or Titanium dioxide are physical barriers to the sun. We recommend sunscreens that contain at least one physical barrier. Look for these brands: Neutrogena, Blue Lizard, [place] Baby, Andrew Almodovar MD, Kaelyn ferris spf 45 very emollient sport (blue bottle) ?? Wear protective clothing. Long-sleeved shirts, pants, a wide-brimmed hat and sunglasses are all excellent choices. Some companies produce great, breathable SPF clothing (Coolibar, LL Hoffmann, Tuesday Afternoons) ?? Seek shade. The sun's rays are strongest between 10a.m. And 4 p.m. ?? Recommend daily face lotion spf 15-30 (Cerave AM, Aveeno, Cotz) You were treated today with Liquid Nitrogen. Liquid nitrogen is extremely cold, and freezes the surface of the skin, causing the lesion to flake off. Treatment with liquid nitrogen can be uncomfortable, but discomfort should subside after a couple of hours. The area treated will look red and irritated, and it may blister up or turn dark, then fall off. This is normal! If you have any questions, please call [phone]. documented in this encounter Progress Notes Annetta Jones MD - 12/28/2016 10:45 AM EDT DERMATOLOGY - CONSULT PATIENT NOTE Date of service: 12/28/2016 Mason Thomas : 1955 CC: skin lesion of cheek HPI: Mason Thomas is a 61 y.o. male seen in consultation at the request of Patsy Holt for evaluation of lesion on the left cheek, irritated when shaving. Does not bleed. Has had significant sun exposure. Has broken his nose four times. Would also like FSE, No other specific lesions that are concerning. No spots that are changing colors, itching, or bleeding. Last FSE: never Sun protection: SPF 15 -20 Relevant Medical History: Preferred name: Anurag Skin type: II Yes/No If yes (date, subtype, location, treatment) Melanoma x Dysplastic nevi x SCC x BCC x AK x Eczema/Psoriasis x Immunosuppression or Malignancy x History of blistering sunburn x Other x Relevant Family History: Yes/No If yes, who (mom/dad/sibling/child) Melanoma x SCC x BCC x Psoriasis or Eczema x Other Social History: Occupation: chiropractor self employed; coaches lacrosses Marital status: Medications: FLUoxetine No Known Allergies Review of Systems: - General: Feels well. - Skin: No other skin concerns. Examination: - Constitutional: Patient was alert, well-appearing and in no noticeable distress. - Skin exam: The patient was asked to disrobe to the level of their comfort. Full skin examination of the scalp, hair, head, face, neck, back, chest, abdomen, right and left upper extremities, right and left lower extremities and buttocks was normal with the exception of the findings listed below. Notable findings/Assessment/Plan: 1. Actinic keratoses - scattered ill defined gritty papules on the right cheek x 1, left cheek x 1, - Reviewed diagnosis with patient and treatment options. - Patient opted to proceed with liquid nitrogen with two freeze thaw cycles Number of lesions - 2 The patient's consent for liquid nitrogen was obtained. Risks and benefits were explained. The possible need for additional liquid nitrogen was reviewed. Risks of increased pigmentation, decreased pigmentation, blister formation, infection, pain, and recurrence were all discussed. The patient tolerated the procedure well. Wound care was reviewed. - Reviewed importance of sun protection (hats/shade/clothing) and sunscreen recommendations (SPF30, UVA/UVB broad spectrum coverage, reapply every 2 hrs if still outside). 2. Seborrheic keratoses - stuck on brown/callejas waxy papules on the trunk and extremities. - Reassured of the benign nature of these lesions. No treatment needed. 3. Tattoo - left upper cutaneous lip Hx of trauma, pencil point. Patient unconcerned. No treatment necessary. 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 - Reassured of the benign nature of these lesions. No treatment needed. 5. Low density benign nevi - Scattered medium brown macules and papules on the trunk and extremitieswith reassuring pigment pattern on dermoscopy. - Reassured of benign appearance on exam today. - Reviewed ABCDEs of melanoma and sun protection ?? RTC: 12 months, FSE, or PRN if symptoms worsen or persist. Note initiated by STEPHANI POLK LPN. .Frida Rangel, Clinical Scribe, has performed the documentation for this encounter in the presenceof and acting as a scribe for Dr. Jones. I performed the above scribed service and agree with the accuracy of the documentation in this encounter. Reviewed and signed by: Annetta Jones MD Dermatology [facility] documented in this encounter Plan of Treatment Not on filedocumented as of this encounter Visit Diagnoses Diagnosis AK (actinic keratosis) Actinic keratosis Seborrheic keratosis Other seborrheic keratosis Tattoo Other dyschromia Jeffries angioma Nevus, non-neoplastic Multiple benign nevi Benign neoplasm of skin, site unspecifie d documented in this encounter Care Teams Program Evaluation Consultant Relationship Specialty Start Date End Date Anurag Flaherty MD PCP - General 02/24/10 04/17/[id number] [place] [address] documented as of this encounter
--- OUTSIDE RECORDS SUMMARY | 2022-01-30 00:17 | XMS_ITS | Encounter Summary ---
:1955 Demographics Home Phone Preferred Language Unknown Marital Status Unknown Restoration Affiliation Unknown Race Unknown Ethnic Group Unknown Author Organization [facility] Address [address] [place] [address] Care Team Providers Name Role Phone Unavailable Primary Care Provider Unavailable Encounter Details Date Type Department Care Team Description 12/19/2020 Lab Requisition [facility] Outr Resulting Lab, Pathology & Laboratory Provider [facility] [address] [place] [address] Social History Tobacco Use Types Packs/Day Years Used Date Never Assessed Sex Assigned at Date Recorded Not on file documented as of this encounter Plan of Treatment Not on filedocumented as of this encounter Procedures Procedure Name Priority Date/Time Associated Comments Diagnosis PSA TOTAL, Routine 12/19/2020 8:24 EDT Results for this DIAGNOSTIC procedure are i n the results section. documented in this encounter Results PSA TOTAL, DIAGNOSTIC (12/19/2020 8:24 EDT) Pathologist Sig nature PSA 0.7 0.0 - 4.5 ng/mL [facility] Specimen Blood - Venous blood (substance) Narrative [facility] - 12/19/2020 17:49 EDT NOTE: Serum PSA concentration should not be in terpreted as absolute evidence for the presence or absence of malignant disease. Assayed on Siemens ADVIA Centaur XPT usi ng chemiluminescent technology.??Values obtained by using different assay methods cannot be used interchangeably. Performing Organization Address City/State/ZIP Code Phon e Number [facility] [address] [place] [address] SERVICES documented in this encounter Visit Diagnoses Not on filedocumented in this encounter
--- OUTSIDE RECORDS SUMMARY | 2022-01-30 00:17 | XMS_ITS | Encounter Summary ---
:1955 Author Organization [facility] Address [facility] [place] [address] Care Team Providers Name Role Phone Justice, Lindsay Zoila HUGHES Primary Care Provider Reason for Visit Reason Comments Follow-up Encounter Details Date Type Department Care Team Description 04/18/2018 Office Visit Dermatology at [facility] Niranjan Begum MD [facility] [address] [place] [address] Actinic keratoses; Road Sameera Corea PA [facility] [address] [place] [address] Traumatic tattoo [address] [place] [address] Social History Tobacco Use Types Packs/Day Years Used Date Never Smoker Smokeless Tobacco: Never Used Sex Assigned at Date Recorded Not on file documented as of this encounter Patient Instructions Patient InstructionsLeslie Patel - 04/18/2018 9:00 AM EST Actinic Keratoses You have been diagnosed today with Actinic Keratosis (AK). These dry, scaly patches are considered the earliest stage in the development of skin cancer. In rare cases, an AK can progress to skin cancer. Because of this risk, AKs are usually treated. You were treated today with Liquid Nitrogen. This is the most common treatment for AKs. Liquid nitrogen is extremely cold, and freezes the surface of the skin, causing the lesion to flake off. Treatment with liquid nitrogen can be uncomfortable, but discomfort should subside after a couple of hours. The area treated will look red and irritated, and it may blister up or turn dark, then fall off. This is normal! You do not need any special treatment for the area, but you may find cold compresses and/or a light application of Vaseline soothing. For best results, do not rub or pick at the healing lesion. Expected healing time is 3-4 weeks. Please contact the Dermatology clinic at [phone] if the lesion has not fully resolved after 6 weeks. documented in this encounter Progress Notes Sameera Corea PA - 04/18/2018 9:00 AM EST DERMATOLOGY - ESTABLISHED PATIENT FOLLOW-UP Date of service: 04/18/2018 Mason Thomas : 1955, 62 y.o. CC: Chief Complaint Patient presents with ??? Follow-up HPI: Mason Thomas is a 62 y.o. male last seen by Dr. Jones on 12/28/2016. Patient is new to me. Mr. Thomas returns today for a follow up on actinic damage of the face. He has a few scaly spots on his face. Denies itching, bleeding, or tenderness of any of these lesions. Denies prior treatments. Relevant Skin History: - Okay to leave detailed voice message with results? Yes - AKs - SKs - Jeffries angiomas - Benign nevi Family History: Melanoma: None Social History: - - Lives in [place], [place] - Self-employed chiropractor - [employer] Medications: Current Outpatient Medications Medication Sig Dispense Refill ??? niacin (NIASPAN ER) 500 mg Tablet Sustained Release 24 hr take 1 tablet by mouth once daily SWALLOW WHOLE DO NOT CRUSH,BREAK,DISSOLVE OR OPEN 0 ??? FLUoxetine (PROZAC) 20 mg capsule No current facility-administered medications for this visit. Allergies: No Known Allergies Review of Systems: - General: Feels well. - Skin: No other skin concerns. Examination: - Constitutional: Patient was alert, well-appearing and in no noticeable distress. - Skin: An exam of the skin from the neck up was performed. This includes examination of the skin ofthe face, ears, scalp, and neck. Diagnosis/Skin findings/Assessment/Plan: 1. Actinic keratoses - Left vertex x1, left helix x1, left cheek x1 right helix x1, right temporal scalp x1, right lateral cheek x1: 0.2-0.3cm scaly irregular pink papules. - Discussed premalignant potential of these lesions. - Discussed that a surgical procedure would likely be needed if these were to progress to skin cancer. - Treatment options discussed such as LN2, PDT, and 5-FU. Each treatment's pros and cons were discussed. - Shared decision to proceed with LN2 treatment at this time: Procedure Note: Procedure: Destruction of lesions with cryotherapy. Number: 6 Location: as above Discussed procedure and expectations including risks (including risk of hypopigmentation) and benefits. Verbal consent obtained. Frozen with LN2, 15-30 second thaw time, TWICE. There were no complications; the patient tolerated the procedure well. Post-procedure expectations and wound care were reviewed. 2. Graphite tattoo - Left nasolabial fold: 2mm galdamez macule. - Patient reassured of benign nature. - No treatment necessary. [facility] [id number] RTC: 1 year for skin check, sooner if needed. Routed for scheduling. Note initiated by Marixa Anthony CMA. I, Leslie Patel, have performed the documentation for this encounter in the presence of and acting as a scribe for Sameera Corea PA-C (Bri). I performed the services which were documented by the scribe, and I agree with the accuracy of the documentation in this encounter. Sameera Corea PA-C Reviewed and signed by Sameera Corea PA-C [facility] Patient seen in conjunction with staff security strategist: Shayla Begum MD Section of Dermatology [facility] Shayla Begum MD - 04/18/2018 9:00 AM EST Patient seen and examined. Scattered pink scaly papules c/w AK's will treat with LN2x. Graphite tattoo on L upper lip- stable. Patient seen in conjunction with Sameera Corea PA-C (Bri) Signed by: SHAYLA BEGUM MD Section of Dermatology [facility] documented in this encounter Plan of Treatment Not on filedocumented as of this encounter Visit Diagnoses Diagnosis Actinic keratoses Actinic keratosis Traumatic tattoo Other dyschromia documented in this encounter Care Teams Geotechnical Intern Relationship Specialty Start Date End Date Lindsay Rendon APRN PCP - General Internal Medicine 04/18/[address] [place] [address] documented as of this encounter
[2022-01-30 00:18] LABS: Abs Immature Grans 0.01 10^3/uL (0.0-0.06); Absolute Basophil Count 0.04 10^3/uL (0.0-0.2); Absolute Lymphocyte Count 2.26 10^3/uL (1.2-3.4); Absolute Monocyte Count 0.69 10^3/uL (0.1-0.8); Absolute Neutrophil Count 4.74 10^3/uL (1.2-6.7); Basophils % 0.5; Eosinophils % 1.3; HCT 43.7 % (40.0-50.0); HGB 14.7 g/dL (13.5-17.5); Immature Grans % 0.1; Lymphocytes % 28.8; MCH 31.5 pg (27.0-33.0); MCHC 33.6 % (32.0-36.0); MCV 94 fL (80-95); MPV 9.1 fL (8.0-11.0); Monocytes % 8.8; Neutrophils % 60.5; Platelet Count 222 10^3/uL (130-400); RBC 4.67 10^6/uL (4.36-5.78); RDW 12.7 % (11.8-14.1); WBC 7.84 10^3/uL (4.4-10.8)
[2022-01-30 00:40] LABS: ALT 54 U/L (16-63); AST 59 U/L (15-37); Albumin 3.8 g/dL (3.4-5.0); Alkaline Phosphatase 60 U/L (46-116); Anion Gap 4.8 mmol/L (3-11); BUN 22 mg/dL (7-18); Bilirubin, Total 0.4 mg/dL (0.2-1.0); CO2 30.2 mmol/L (21.0-32.0); CREATININE 1.2 mg/dL (0.70-1.30); Calcium 9.1 mg/dL (8.5-10.1); Chloride 103 mmol/L (98-107); Glucose 112 mg/dL (74-106); Magnesium 2.2 mg/dL (1.8-2.4); Potassium 4.1 mmol/L (3.5-5.1); Sodium 138 mmol/L (136-145); Total Protein 7.5 g/dL (6.4-8.2)
--- NOTE | 2022-01-30 00:42 | ED.GENADUL_ITS ---
Discharge Plan Disposition Patient Disposition: [facility] Condition: Critical Discharge Details Clinical Impression: Acute non-ST elevation myocardial infarction (NSTEMI), Compression fracture of T7 vertebra Primary Care Provider: Lindsay Rendon ED Provider: Kevin Walker Home Meds and New Rx's Prescriptions: No Action methylprednisolone [Medrol (Eric)] 4 mg tablets,dose pack See Rx Instructions .Route .COMPLEX Qty: 21 1RF Rx Instructions: 6 tabs day 1, 5 tabs day 2, 4 tabs day 3, 3 tabs day 4, 2 tabs day 5, 1 tabs day 6 with food. cholecalciferol (vitamin D3) 125 mcg (5,000 unit) capsule 125 mcg PO DAILY glucosamine sulfate 2KCl [Glucosamine Relief] 1,000 mg tablet 1,000 mg PO BID Rx Instructions: administer with meals bergamot capsule 1 cap PO BID multivitamin [Daily Multi-Vitamin] 1 EACH tablet 1 ea PO DAILY fluoxetine 20 mg capsule 20 mg PO DAILY Qty: 90 3RF niacin 500 mg tablet extended release 24 hr 500 mg PO DAILY Qty: 90 3RF Rx Instructions: swallow whole; do not chew/break/dissolve/open Medical Decision Making -- 66-year-old male, avid runner, history of hyperlipidemia and borderline hypertension the past, here with some shortness of breath while running over the past few days and new onset of substernal chest and epigastric abdominal pressure that started around 7:30 PM and has persisted. He patient is saturating well and in no respiratory distress. He is hypertensive 199/108. EKG was reviewed and interpreted by me: Please see report, [address] elevation noted V1 and V2 with deep ST depression V4 and depression V5 and V6. Given history, consider aortic dissection. Plan to obtain CTA. I will give nitroglycerin. 145 --CTA of the chest abdomen pelvis was interpreted by radiology: IMPRESSION: 1. No aortic dissection. 2. Compression deformity at T7 appears chronic, with adjacent degenerative changes. Labs reviewed and troponin significantly elevated at 1666. Concern for NSTEMI. I called [facility] to request transfer and this was declined due to capacity. I will contact [facility]. --Repeat EKG was obtained and it does seem to be subtle increase in ST segment in V3 compared to prior, now 1 mm, persistent [address] depressions laterally. 153 --I spoke to Dr. Parson, on-call rn house supervisor, discussed ED presentation and course including EKG and dynamic findings. EKG was sent for review. He will except the patient in transfer. I also spoke with Dr. Posada in the emergency department and relayed ED presentation course. -- Repeat blood pressure 153/88, stable with no chest pain on nitroglycerin infusion at 5 mcg/min Lab Data Lab results reviewed: Yes I reviewed the patient's lab results. Labs: Laboratory Tests Range/Units 01/30/22 01/30/22 01/30/22 00:10 00:10 01:10 WBC (4.4-10.8) 10^3/uL 7.84 RBC (4.36-5.78) 10^6/uL 4.67 Hgb (13.5-17.5) g/dL 14.7 Hct (40.0-50.0) % 43.7 MCV (80-95) fL 94 MCH (27.0-33.0) pg 31.5 MCHC (32.0-36.0) % 33.6 RDW (11.8-14.1) % 12.7 Plt Count (130-400) 10^3/uL 222 MPV (8.0-11.0) fL 9.1 Immature Gran % 0.1 Neutrophils % 60.5 Lymphocytes % 28.8 Monocytes % 8.8 Eosinophils % 1.3 Basophils % 0.5 Nucleated RBC % (0.0-0.3) % 0.0 Absolute Neutrophils (1.2-6.7) 10^3/uL 4.74 Absolute Lymphocytes (1.2-3.4) 10^3/uL 2.26 Absolute Monocytes (0.1-0.8) 10^3/uL 0.69 Absolute Eosinophils (0.0-0.7) 10^3/uL 0.10 Absolute Basophils (0.0-0.2) 10^3/uL 0.04 APTT (21.0-27.5) sec 25.0 Sodium (136-145) mmol/L 138 Potassium (3.5-5.1) mmol/L 4.1 Chloride (98-107) mmol/L 103 Carbon Dioxide (21.0-32.0) mmol/L 30.2 Anion Gap (3-11) mmol/L 4.8 BUN (7-18) mg/dL 22 H Creatinine (0.70-1.30) mg/dL 1.2 Est GFR (CKD-EPI 2020) (mL/min/1.73m2) 66.70 Glucose (74-106) mg/dL 112 H Calcium (8.5-10.1) mg/dL 9.1 Magnesium (1.8-2.4) mg/dL 2.2 Total Bilirubin (0.2-1.0) mg/dL 0.4 AST (15-37) U/L 59 H ALT (16-63) U/L 54 Alkaline Phosphatase (46-116) U/L 60 Troponin I (<or=60) ng/L 1666 H* Total Protein (6.4-8.2) g/dL 7.5 Albumin (3.4-5.0) g/dL 3.8 COVID-19 Source Range/Units 01/30/22 01:50 WBC (4.4-10.8) 10^3/uL RBC (4.36-5.78) 10^6/uL Hgb (13.5-17.5) g/dL Hct (40.0-50.0) % MCV (80-95) fL MCH (27.0-33.0) pg MCHC (32.0-36.0) % RDW (11.8-14.1) % Plt Count (130-400) 10^3/uL MPV (8.0-11.0) fL Immature Gran % Neutrophils % Lymphocytes % Monocytes % Eosinophils % Basophils % Nucleated RBC % (0.0-0.3) % Absolute Neutrophils (1.2-6.7) 10^3/uL Absolute Lymphocytes (1.2-3.4) 10^3/uL Absolute Monocytes (0.1-0.8) 10^3/uL Absolute Eosinophils (0.0-0.7) 10^3/uL Absolute Basophils (0.0-0.2) 10^3/uL APTT (21.0-27.5) sec Sodium (136-145) mmol/L Potassium (3.5-5.1) mmol/L Chloride (98-107) mmol/L Carbon Dioxide (21.0-32.0) mmol/L Anion Gap (3-11) mmol/L BUN (7-18) mg/dL Creatinine (0.70-1.30) mg/dL Est GFR (CKD-EPI 2020) (mL/min/1.73m2) Glucose (74-106) mg/dL Calcium (8.5-10.1) mg/dL Magnesium (1.8-2.4) mg/dL Total Bilirubin (0.2-1.0) mg/dL AST (15-37) U/L ALT (16-63) U/L Alkaline Phosphatase (46-116) U/L Troponin I (<or=60) ng/L Total Protein (6.4-8.2) g/dL Albumin (3.4-5.0) g/dL COVID-19 Source Nasal/Nares HPI General Mode of arrival: ambulatory . Date/Time Provider Initiated Documentation: 01/29/22 23:47 . Limitations to Documentation: no limitations . Information obtained by: patient . HPI Narrative: 56-year-old male presents with chief complaint of chest pressure. Patient notes he is an avid runner. On Tuesday he ran a typical run and felt a little winded. Today he ran a 4 mile run and felt somewhat short of breath and it took him longer to run than usual. Around 730 this evening prior to eating he developed substernal and epigastric pressure that has been constant since onset. Pressure is rated mild to moderate 4/10. He has no associated shortness of breath at this time. No nausea or diaphoresis. No leg swelling or calf pain. Related Data Home Medications Medication Instructions Recorded Confirmed multivitamin (Daily Multi-Vitamin 1 ea PO DAILY 07/31/13 06/16/21 tablet) bergamot 1 cap PO BID 10/31/20 06/16/21 cholecalciferol (vitamin D3) 125 125 mcg PO DAILY 10/31/20 06/16/21 mcg (5,000 unit) capsule glucosamine sulfate 2KCl 1,000 mg 1,000 mg PO BID 10/31/20 06/16/21 tablet (Glucosamine Relief) methylprednisolone 4 mg tablets in See Rx Instructions .Route 06/16/21 06/16/21 a dose pack (Medrol (Eric)) .COMPLEX #21 dose pk fluoxetine 20 mg capsule 20 mg PO DAILY #90 caps 08/20/21 niacin 500 mg tablet,extended 500 mg PO DAILY #90 tabs 12/14/21 release 24 hr Previous Rx's Medication Instructions Recorded methylprednisolone 4 mg tablets in See Rx Instructions .Route 06/16/21 a dose pack (Medrol (Eric)) .COMPLEX #21 dose pk fluoxetine 20 mg capsule 20 mg PO DAILY #90 caps 08/20/21 niacin 500 mg tablet,extended 500 mg PO DAILY #90 tabs 12/14/21 release 24 hr Allergies Allergy/AdvReac Type Severity Reaction Status Date / Time No Known Drug Allergies Allergy Verified 06/16/21 14:02 General Stated Complaint: Chest Pain LYNDSAY: 2 PFSH All Active Problems (Updated 01/30/22 @ 01:59 by Kevin Walker MD) Acute non-ST elevation myocardial infarction (NSTEMI) (Acute) Compression fracture of T7 vertebra (Acute) Screening for prostate cancer (Acute) Diverticula of colon (Acute) Encounter for routine history and physical examination (Acute 02/08/12) Kidney stones, calcium oxalate (Acute) Lau's neuroma of right foot (Acute) Routine medical exam (Acute) Colon cancer screening (Acute) Screening, lipid (Acute) Dry skin (Acute) Sensorineural hearing loss (SNHL) of both ears (Chronic 01/08/16) Tip Marleny, ENT Other and unspecified hyperlipidemia (Chronic 04/03/99) 6% risk, goal LDL <130, rx if >190: lifestyle Anxiety state, unspecified (Chronic 11/16/06) Generalized Anxiety Disorder; fluoxetine effective Medical History Epicondylitis, medial humeral Left Nasal septal defect surgery Surgical History Normal colonoscopy (~11/2020) repair fx right small finger fx (03/26/16) Family History Sister Bipolar 1 disorder Sister Asthma Sister Alcohol abuse in recovery RH 06/10/20 Father , age 56 Cancer Social History Smoking/Tobacco Use Status: Never Second Hand Exposure: No Smoking risk assessment performed?: Yes Alcohol Intake: never Drug use: Never Substance use type: does not use Adopted: No Caregiver/Support person: No Foster care: No Household members: spouse Housing: house Number of Children: 2 number of grandchildren: 0 Communication Needs: Corrective Lenses Education Level: master's degree Do you need help understanding health information?: Never current occupation: Retired Pets and animals: Yes (2) Pets and animals: cat(s) Sexually active: Yes Do you think of yourself as: straight/heterosexual Current gender identity: male What is your relationship status?: How often do you talk on the phone with friends or family?: three or more times per week How often do you get together with friends or relatives?: once per week How often do you attend advent or uatsdin services?: decline to answer Do you belong to any clubs or organized social groups?: no Panel score (0-1 are the most socially isolated patients): 2 What type of physical activity do you participate in: bicycling, weight lifting, other Details: skiing and running Duration: 30-45 minutes/day Frequency: 5-6 times per week Special shannan needs: No Seatbelt use: always Helmet use: Yes Helmet use: always Drive intox or ride w/intox truck driver helper: No Water heater temp set <120 deg: Yes Working smoke detector in home: Yes Fire extinguisher in home: Yes Carbon monox detector in home: Yes Firearms in home: No Do you feel safe at home: Yes Do you feel safe in your relationship?: Yes Victim of physical abuse: No Victim of emotional abuse: No Victim of sexual abuse: No Would you like helpful sources: No Exam Const General: cooperative and no acute distress HENMT Mouth: moist mucous membranes Eyes Conjunctivae: normal conjunctivae Sclera: normal sclerae EOM: EOM intact bilaterally Neck Neck: trachea midline Resp Auscultation: clear to auscultation bilaterally, no rales, no rhonchi and no wheezes Cardio Rate: regular rate and not tachycardic Rhythm: regular rhythm GI Palpation: soft, not firm, no guarding, no masses, not rigid and nontender Skin General skin exam: no rashes or lesions noted Neuro General: patient alert, patient awake and tone normal Extrem General: no calf tenderness and no edema Psych Appearance: grossly normal Mental Status: mental status grossly normal Speech and Movement: speech and movement normal Course Vital Signs Vital signs: Vital Signs Temperature 36.0 C L 01/29/22 23:53 Pulse 63 01/29/22 23:53 Respiratory Rate 18 01/29/22 23:53 Blood Pressure 199/108 H 01/29/22 23:53 Pulse Oximetry 99 01/29/22 23:53 Temperature 36.0 C L 01/29/22 23:53 Temperature Source Tympanic 01/29/22 23:53 Pulse 61 01/29/22 23:59 Pulse 75 01/29/22 23:59 Respiratory Rate 15 01/29/22 23:59 Respiratory Effort 01/29/22 23:58 Respiratory Depth Normal 01/29/22 23:58 Respiratory Pattern Normal 01/29/22 23:58 Blood Pressure 199/108 H 01/29/22 23:59 Blood Pressure Mean 131 01/29/22 23:59 Blood Pressure Position Supine 01/29/22 23:53 Pulse Oximetry 99 01/29/22 23:59 Oxygen Delivery Method Room Air 01/29/22 23:53 Oxygen Flow Rate 0 01/29/22 23:53 Pain Level 4 01/29/22 23:53 Lab/Test Results Lab/Test Results: Laboratory Tests Range/Units 01/30/22 00:10 WBC (4.4-10.8) 10^3/uL 7.84 RBC (4.36-5.78) 10^6/uL 4.67 Hgb (13.5-17.5) g/dL 14.7 Hct (40.0-50.0) % 43.7 MCV (80-95) fL 94 MCH (27.0-33.0) pg 31.5 MCHC (32.0-36.0) % 33.6 RDW (11.8-14.1) % 12.7 Plt Count (130-400) 10^3/uL 222 MPV (8.0-11.0) fL 9.1 Immature Gran % 0.1 Neutrophils % 60.5 Lymphocytes % 28.8 Monocytes % 8.8 Eosinophils % 1.3 Basophils % 0.5 Nucleated RBC % (0.0-0.3) % 0.0 Absolute Neutrophils (1.2-6.7) 10^3/uL 4.74 Absolute Lymphocytes (1.2-3.4) 10^3/uL 2.26 Absolute Monocytes (0.1-0.8) 10^3/uL 0.69 Absolute Eosinophils (0.0-0.7) 10^3/uL 0.10 Absolute Basophils (0.0-0.2) 10^3/uL 0.04 Critical Care Time Critical Care Time Critical Care Time: Yes Total Critical Care Time: 65 Attestation: I spent greater than 65 minutes addressing this patient's immediate life threats. Please see MDM section of note. This time was spent engaged in work directly related to the patient's care, exclusive of separate procedures, and failure to initiate these interventions would have likely resulted in clinically significant or life threatening deterioration in the patient's condition.
[2022-01-30 00:52] LABS: Troponin I 1666 ng/L (<or=60)
[2022-01-30] MEDS: Omnipaque 350 MG/ML 100 ML BTL IJ (01:00)
--- NOTE | 2022-01-30 01:00 | RT.EKG_ITS ---
APPROVED REPORT Exam: Resting ECG Reason for Exam: chest pain Patient Location: E HR:64 bpm ECG Measurements Heart Rate 64 AXIS PA 187 P 69 QRSd 84 QRS 57 QT 406 T 51 QTc 418 Conclusion Sinus rhythm...normal P axis, V-rate 60- 99 Probable left atrial enlargement...P >50mS, <-0.10mV V1 Probable left ventricular hypertrophy...multiple LVH criteria 1mm ST elev v2-3, st dep V4-6 Abnormal Electrocardiogram
[2022-01-30] MEDS: Aspirin 81 MG CHEW 324 MG CH (01:21)
[2022-01-30] MEDS: Clopidogrel 300 MG TAB 600 MG PO (01:21)
[2022-01-30] MEDS: nitroGLYcerin in D5W 50 MG/250 ML BTL IV (01:30)
[2022-01-30] MEDS: Heparin 5,000 UNITS/ML VIAL 5000 UNITS (01:33)
--- NOTE | 2022-01-30 01:36 | DI.VRAD_ITS ---
PROCEDURE INFORMATION: Exam: CTA Chest With Contrast CTA Abdomen and Pelvis With Contrast Exam date and time: 01/30/2022 12:37 AM Age: 66 years old Clinical indication: Other: Centrqal chest pressure, hypertension TECHNIQUE: Imaging protocol: Computed tomographic angiography of the chest with contrast. Computed tomographic angiography of the abdomen and pelvis with contrast. 3D rendering (Not supervised by radiologist): MIP and/or 3D reconstructed images were created by the technologist. Radiation optimization: All CT scans at this facility use at least one of these dose optimization techniques: automated exposure control; mA and/or kV adjustment per patient size (includes targeted exams where dose is matched to clinical indication); or iterative reconstruction. Contrast material: 350; Contrast volume: 90 ml; Contrast route: INTRAVENOUS (IV); COMPARISON: CR XR SHOULDER RT COMPLETE 2+V 06/16/2021 2:56 PM FINDINGS: VASCULATURE: Pulmonary arteries: Pulmonary arteries are not well opacified. Exam is dedicated for the aorta. Aorta: Intact thoracic aorta. Intact abdominal aorta. Mild calcified and noncalcified plaque. No aneurysm. No dissection. Celiac trunk and mesenteric arteries: No occlusion or significant stenosis. Renal arteries: Duplicated left renal arteries. No occlusion or significant stenosis. Right iliac arteries: No occlusion or significant stenosis. Left iliac arteries: Mild tortuosity. No occlusion or significant stenosis. CHEST: Lungs: No consolidation. No ground-glass opacity. No significant endobronchial mucus. Pleural spaces: Unremarkable. No pneumothorax. No pleural effusion. Heart: No cardiomegaly. No pericardial effusion. Mild coronary artery calcifications. ABDOMEN AND PELVIS: Liver: Unremarkable early contrast liver imaging. Gallbladder and bile ducts: Unremarkable. No calcified stones. No ductal dilation. Pancreas: Unremarkable. No mass. No ductal dilation. Spleen: Unremarkable early contrast splenic imaging. Adrenal glands: Unremarkable. No mass. Kidneys and ureters: Kidneys enhance symmetrically. Negative for hydronephrosis. Ureters are not dilated. No stones are observed. Stomach and bowel: Unremarkable stomach. Nondilated small bowel. Scattered distal colonic diverticulosis. Appendix: Normal appendix. Intraperitoneal space: Unremarkable. No free air. No significant fluid collection. Urinary bladder: Unremarkable. No mass. Reproductive: Unremarkable as visualized. Lymph nodes: Unremarkable. No enlarged lymph nodes. Bones/joints: Moderate compression deformity noted at T7. No retropulsion. No anterolisthesis or retrolisthesis. Disc spaces at T6-T7 and T7-T8 are narrow and irregular, with mild vacuum disc. Moderate facet arthropathy is also noted at T6-T7 on the left. Unremarkable ribs. Intact sternum. Mild degenerative changes noted in the lumbar spine. Sacrum and coccyx are intact. Mild narrowing noted in both hips. Soft tissues: Unremarkable. IMPRESSION: 1. No aortic dissection. 2. Compression deformity at T7 appears chronic, with adjacent degenerative changes. Dictated and Authenticated by: Augustus Ross MD. Ordering:MELISSA Brown MD
[2022-01-30 01:54] LABS: Source Nasal/Nares
[2022-01-30 02:24] LABS: COVID-19 PCR Negative (Negative)
== END 2022-01-30 02:41 ==
PROVIDERS: Registered Nurse Emergency; Emergency Provider Student in an Organized Health Care Education/Training Program; PCP Nurse Practitioner
DX: I21.4 Non-ST elevation (NSTEMI) myocardial infarction (principal); M48.54XA Collapsed vertebra, not elsewhere classified, thoracic region, initial encounter for fracture; Z20.822 Contact with and (suspected) exposure to COVID-19
CPT/HCPCS: 71275; 80053; 87635; 93005; 96365; 96375; 96376; 99291; 74174; 83735; 84484; 85025; 85730; 93010; J1644; J3490

== ENCOUNTER 2022-02-18 17:59 | Emergency (ER) | payer MEDICARE, SELFPAY ==
[2022-02-18 18:05] VITALS: BP 126/75; PULSE 65; RESP 16; TEMP 36.8; O2SAT 98
--- NOTE | 2022-02-18 18:24 | W.ED.GENAD ---
Discharge Plan Disposition Patient Disposition: Home Condition: Stable Discharge Details Clinical Impression: Bleeding from wound Primary Care Provider: Lindsay Rendon ED Provider: Reina Shoemaker Home Meds and New Rx's Prescriptions: Continued cholecalciferol (vitamin D3) 125 mcg (5,000 unit) capsule 125 mcg PO DAILY glucosamine sulfate 2KCl [Glucosamine Relief] 1,000 mg tablet 1,000 mg PO BID Rx Instructions: administer with meals bergamot capsule 1 cap PO BID metoprolol tartrate 25 mg tablet 25 mg PO BID aspirin [Roderick Low Dose Aspirin] 81 mg tablet,delayed release (DR/EC) 81 mg PO DAILY atorvastatin 40 mg tablet 40 mg PO DAILY fluoxetine 20 mg capsule 20 mg PO DAILY Qty: 90 3RF multivitamin [Daily Multi-Vitamin] 1 EACH tablet 1 ea PO DAILY niacin 500 mg tablet extended release 24 hr 500 mg PO DAILY Qty: 90 3RF Rx Instructions: swallow whole; do not chew/break/dissolve/open cephalexin 500 mg capsule 500 mg PO QID Qty: 28 0RF Discharge Instructions Instructions: Skin Adhesive Care (ED), Acute Wounds (ED) Additional Instructions: Keep compression bandage on for the rest of the night. You may take it off tomorrow morning. Please return to the ER if bleeding recurs and you are unable to stop the bleeding after 15 minutes of constant applied pressure and elevation. Follow up with primary care provider in 3-5 days. Return to ED sooner if any worsening or concerns. Increase oral fluids. Referrals: Lindsay Rendon NP [Primary Care Provider] - 2 days Discharge Data Discharge Date/Time-TO BE ENTERED AT DEPARTURE: 02/18/22 19:22 Medical Decision Making <Reina Shoemaker NP - Last Filed: 02/18/22 21:46> 66-year-old male presents to the ER with chief complaint of graft site bleeding. Patient reports approximately 30 to 45 minutes prior to arrival he was out on a walk he was wearing his compression socks when he noticed some bleeding. He applied compression and elevating his leg and it was continued to bleed so he presented to the ER. Upon arrival patient has a washcloth and Joaquim wrap and a dressing to the site which is soaked through with blood. However bleeding is controlled at this time upon dressing removal. 1826: Dermabond applied to the graft site. We will continue to observe for approximately 20 minutes prior to discharge. No bleeding at this time. 1911: No further bleeding noted. Compression bandage applied by staff research associate. I did discuss home care with patient and strict return instructions. Instructed to return if unable to stop the bleeding after 15 minutes of direct constant pressure. This text was generated using [employer] system, please disregard any oddities of phrase or misspellings. Medical Records Medical records reviewed: Yes I reviewed the patient's medical records. Sign Out No <Kevin Walker MD - Last Filed: 02/21/22 19:11> 1826: Dermabond applied to the graft site. We will continue to observe for approximately 20 minutes prior to discharge. No bleeding at this time. Date: 02/18/22 Time: 18:34 Note: Patient seen, examined, and discussed with EDDY Shoemaker. I agree with treatment plan as discussed/documented. HPI <Reina Shoemaker NP - Last Filed: 02/18/22 21:46> General Mode of arrival: ambulatory. Date/Time Provider Initiated Documentation: 02/18/22 18:00. Limitations to Documentation: no limitations. Information obtained by: patient, RN notes reviewed and old records reviewed. HPI Narrative: 66-year-old male presents to the ER with chief complaint of graft site bleeding. Patient reports approximately 30 to 45 minutes prior to arrival he was out on a walk he was wearing his compression socks when he noticed some bleeding. He applied compression and elevating his leg and it was continued to bleed so he presented to the ER. Upon arrival patient has a washcloth and Joaquim wrap and a dressing to the site which is soaked through with blood. However bleeding is controlled at this time upon dressing removal. He does have some surrounding ecchymosis noted which he reports he is on Keflex for. Past medical history includes NSTEMI, T7 compression fracture, kidney stones, anxiety. He does take aspirin. He is not on any other blood thinners. Related Data Home Medications Medication Instructions Recorded Confirmed multivitamin (Daily Multi-Vitamin 1 ea PO DAILY 07/31/13 02/18/22 tablet) bergamot 1 cap PO BID 10/31/20 02/18/22 cholecalciferol (vitamin D3) 125 125 mcg PO DAILY 10/31/20 02/18/22 mcg (5,000 unit) capsule glucosamine sulfate 2KCl 1,000 mg 1,000 mg PO BID 10/31/20 02/18/22 tablet (Glucosamine Relief) niacin 500 mg tablet,extended 500 mg PO DAILY #90 tabs 12/14/21 02/18/22 release 24 hr cephalexin 500 mg capsule 500 mg PO QID #28 caps 02/13/22 02/18/22 aspirin 81 mg tablet,delayed 81 mg PO DAILY 02/18/22 02/18/22 release (Roderick Low Dose Aspirin) atorvastatin 40 mg tablet 40 mg PO DAILY 02/18/22 02/18/22 fluoxetine 20 mg capsule 20 mg PO DAILY #90 caps 02/18/22 02/18/22 metoprolol tartrate 25 mg tablet 25 mg PO BID 02/18/22 02/18/22 Previous Rx's Medication Instructions Recorded niacin 500 mg tablet,extended 500 mg PO DAILY #90 tabs 12/14/21 release 24 hr cephalexin 500 mg capsule 500 mg PO QID #28 caps 02/13/22 fluoxetine 20 mg capsule 20 mg PO DAILY #90 caps 02/18/22 Allergies Allergy/AdvReac Type Severity Reaction Status Date / Time No Known Drug Allergies Allergy Verified 06/16/21 14:02 General Stated Complaint: Laceration LYNDSAY: 3 Review of Systems <Reina Shoemaker NP - Last Filed: 02/18/22 21:46> Cardiovascular Cardiovascular: Denies syncope and Denies lightheadedness Integumentary/Breasts Skin/Breast: Reports as per HPI and Reports sores (Uncontrolled bleeding prior to arrival) Neurologic Neurologic: Denies syncope COUNTS INCLUDE 234 BEDS AT THE [facility] <Reina Shoemaker NP - Last Filed: 02/18/22 21:46> All Active Problems (Updated 02/18/22 @ 19:11 by Reina Shoemaker NP) Bleeding from wound (Acute) Hyperlipidemia (Acute) History of non-ST elevation myocardial infarction (NSTEMI) (Acute) Acute non-ST elevation myocardial infarction (NSTEMI) (Acute) Compression fracture of T7 vertebra (Acute) Screening for prostate cancer (Acute) Diverticula of colon (Acute) Encounter for routine history and physical examination (Acute 02/08/12) Kidney stones, calcium oxalate (Acute) Lau's neuroma of right foot (Acute) Routine medical exam (Acute) Colon cancer screening (Acute) Screening, lipid (Acute) Dry skin (Acute) Sensorineural hearing loss (SNHL) of both ears (Chronic 01/08/16) [place], [facility] Other and unspecified hyperlipidemia (Chronic 04/03/99) 6% risk, goal LDL <130, rx if >190: lifestyle Anxiety state, unspecified (Chronic 11/16/06) Generalized Anxiety Disorder; fluoxetine effective Medical History Epicondylitis, medial humeral Left Nasal septal defect surgery Surgical History Normal colonoscopy (~11/2020) repair fx right small finger fx (03/26/16) Family History Sister Bipolar 1 disorder Sister Asthma Sister Alcohol abuse in recovery RH 06/10/20 Father , age 56 Cancer Social History Smoking/Tobacco Use Status: Never Second Hand Exposure: No Smoking risk assessment performed?: Yes Alcohol Intake: never Drug use: Never Substance use type: does not use Adopted: No Caregiver/Support person: No Foster care: No Household members: spouse Housing: house Number of Children: 2 number of grandchildren: 0 Communication Needs: Corrective Lenses Education Level: master's degree Do you need help understanding health information?: Never current occupation: Retired Pets and animals: Yes (2) Pets and animals: cat(s) Sexually active: Yes Do you think of yourself as: straight/heterosexual Current gender identity: male What is your relationship status?: How often do you talk on the phone with friends or family?: three or more times per week How often do you get together with friends or relatives?: once per week How often do you attend evangelical or congregational services?: decline to answer Do you belong to any clubs or organized social groups?: no Panel score (0-1 are the most socially isolated patients): 2 What type of physical activity do you participate in: bicycling, weight lifting, other Details: skiing and running Duration: 30-45 minutes/day Frequency: 5-6 times per week Special shannan needs: No Seatbelt use: always Helmet use: Yes Helmet use: always Drive intox 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 Small puncture wound, bleeding controlled 2. Ecchymosis 3. Scab Course <Reina Shoemaker NP - Last Filed: 02/18/22 21:46> Vital Signs Vital signs: Vital Signs Temperature 36.8 C 02/18/22 18:05 Pulse 65 02/18/22 18:05 Respiratory Rate 16 02/18/22 18:05 Blood Pressure 126/75 02/18/22 18:05 Pulse Oximetry 98 02/18/22 18:05 Temperature 36.8 C 02/18/22 18:05 Temperature Source Temporal Artery Scan 02/18/22 18:05 Pulse 65 02/18/22 18:05 Respiratory Rate 16 02/18/22 18:05 Respiratory Effort 02/18/22 18:19 Blood Pressure 126/75 02/18/22 18:05 Blood Pressure Position Sitting 02/18/22 18:05 Pulse Oximetry 98 02/18/22 18:05 Oxygen Delivery Method Room Air 02/18/22 18:05 Oxygen Flow Rate 0 02/18/22 18:05 Pain Level 0 02/18/22 18:14
[2022-02-18 19:23] VITALS: PULSE 67; RESP 18; TEMP 36.9; O2SAT 96
== END 2022-02-18 19:22 | disposition home or self-care (01) ==
PROVIDERS: Emergency Provider Registered Nurse Emergency; PCP Nurse Practitioner
DX: L76.22 Postprocedural hemorrhage of skin and subcutaneous tissue following other procedure (principal)
CPT/HCPCS: 99282

== ENCOUNTER 2022-04-02 08:11 | Outpatient (RCR) | payer MEDICARE, SELFPAY | END 2022-04-03 23:59 | disposition home or self-care (01) | LOC: CR 08:11 | PROVIDERS: PCP Nurse Practitioner; Visit Provider Internal Medicine Cardiovascular Disease | DX: I25.2 Old myocardial infarction (principal); Z95.5 Presence of coronary angioplasty implant and graft; Z51.89 Encounter for other specified aftercare | CPT/HCPCS: S9472 ==

== ENCOUNTER 2022-04-28 02:46 | Outpatient (CLI) | payer MEDICARE, SELFPAY ==
[2022-04-28 08:41] LABS: Calculated LDL 93 mg/dL (<100); Cholesterol 166 mg/dL (<200); HDL Cholesterol 51 mg/dL (40-60); Triglyceride 112 mg/dL (<150)
== END 2022-04-28 02:47 | disposition home or self-care (01) ==
LOC: LBO 02:46
PROVIDERS: PCP Nurse Practitioner; Visit Provider Nurse Practitioner
DX: E78.5 Hyperlipidemia, unspecified (principal); I25.2 Old myocardial infarction
CPT/HCPCS: 36415; 80061

== ENCOUNTER 2022-04-30 08:45 | Outpatient (RCR) | payer MEDICARE, SELFPAY | END 2022-05-04 23:59 | disposition home or self-care (01) | LOC: CR 08:45 | PROVIDERS: PCP Nurse Practitioner; Visit Provider Internal Medicine Cardiovascular Disease | DX: I25.2 Old myocardial infarction (principal); Z95.1 Presence of aortocoronary bypass graft; Z51.89 Encounter for other specified aftercare | CPT/HCPCS: S9472 ==

== ENCOUNTER 2022-05-21 08:00 | Outpatient (RCR) | payer MEDICARE, SELFPAY | END 2022-06-01 23:59 | disposition home or self-care (01) | LOC: CR 08:00 | PROVIDERS: PCP Nurse Practitioner; Visit Provider Internal Medicine Cardiovascular Disease | DX: I25.2 Old myocardial infarction (principal); Z95.1 Presence of aortocoronary bypass graft; Z51.89 Encounter for other specified aftercare | CPT/HCPCS: S9472 ==

== ENCOUNTER 2022-08-12 02:34 | Outpatient (CLI) | payer MEDICARE, SELFPAY ==
[2022-08-12 08:57] LABS: Calculated LDL 77 mg/dL (<100); Cholesterol 147 mg/dL (<200); HDL Cholesterol 54 mg/dL (40-60); Triglyceride 82 mg/dL (<150)
[2022-08-14 11:33] LABS: Lipoprotein (a) 16 nmol/L (<75)
== END 2022-08-12 02:35 | disposition home or self-care (01) ==
LOC: LBO 02:34
PROVIDERS: PCP Nurse Practitioner; Visit Provider Internal Medicine Cardiovascular Disease
DX: I25.10 Atherosclerotic heart disease of native coronary artery without angina pectoris (principal)
CPT/HCPCS: 36415; 80061; 83695

== ENCOUNTER 2023-06-03 03:02 | Outpatient (CLI) | payer MEDICARE, SELFPAY ==
[2023-06-03 08:38] LABS: Calculated LDL 111 mg/dL (<100); Cholesterol 178 mg/dL (<200); HDL Cholesterol 53 mg/dL (40-60); Triglyceride 74 mg/dL (<150)
== END 2023-06-03 03:03 | disposition home or self-care (01) ==
LOC: LBO 03:04
PROVIDERS: PCP Nurse Practitioner; Visit Provider Internal Medicine Cardiovascular Disease
DX: E78.2 Mixed hyperlipidemia (principal)
CPT/HCPCS: 36415; 80061

== ENCOUNTER 2023-11-29 23:27 | Emergency (ER) | payer MEDICARE, SELFPAY ==
[2023-11-29 23:37] VITALS: BP 137/88; PULSE 71; RESP 16; TEMP 36; O2SAT 97
--- NOTE | 2023-11-29 23:45 | DI.RAD_ITS ---
Exam(s) XR ANKLE LT COMPLETE EXAM: XR ANKLE LT COMPLETE CLINICAL HISTORY: left ankle pain s/p fall. TECHNIQUE: 2D digital imaging was performed. COMPARISON: No exams were available for comparison FINDINGS: 3 views There is a nondisplaced transverse fracture of the base of the 5th metatarsal. No malleolar fracture s. No widening of the ankle mortise. Talar dome unremarkable. Bone density normal. No osseous lesions. No radiopaque foreign bodies. IMPRESSION: There is a nondisplaced fracture of the base of the 5th metatarsal DATA REPOSITORY: RADIATION DOSE DELIVERED:
[2023-11-30] MEDS: Acetaminophen 500 MG TAB 1000 MG PO
--- NOTE | 2023-11-30 00:12 | W.ED.GENAD ---
Discharge Plan Disposition Patient Disposition: Home Condition: Good Discharge Details Clinical Impression: Metatarsal bone fracture Primary Care Provider: Lindsay Rendon ED Provider: Carolyne Davis Home Meds and New Rx's Prescriptions: Continued cholecalciferol (vitamin D3) 125 mcg (5,000 unit) capsule 125 mcg PO DAILY glucosamine sulfate 2KCl [Glucosamine Relief] 1,000 mg tablet 1,000 mg PO BID Rx Instructions: administer with meals aspirin [Roderick Low Dose Aspirin] 81 mg tablet,delayed release (DR/EC) 81 mg PO DAILY multivitamin [Daily Multi-Vitamin] 1 EACH tablet 1 ea PO DAILY metoprolol succinate 25 mg tablet extended release 24 hr 12.5 mg PO DAILY Qty: 45 3RF atorvastatin 20 mg tablet 40 mg PO DAILY Patient Comments: 03/14/23 visit fluoxetine 20 mg capsule 20 mg PO DAILY Qty: 90 3RF turmeric 400 mg capsule 1,000 mg PO DAILY Discharge Instructions Instructions: Walking Boot, Foot Fracture ED Additional Instructions: Call your PCP today to schedule an appointment for within the next 3 days to followup on your visit here. At that point you should discuss whether or not you should be referred to orthopedics. No weight bearing on your affected leg until cleared by your PCP; use the boot and crutches. Tylenol and ibuprofen over the counter for pain; follow the directions on the bottle. Return to the emergency department for new or worsening symptoms including uncontrolled pain, numbness, weakness, or if you have any other concerns. Referrals: Lindsay Rendon, ROTARY DRILL OPERATOR HELPER [Primary Care Provider] - [facility] General Mode of arrival: ambulatory. Date/Time Provider Initiated Documentation: 11/29/23 23:33. Limitations to Documentation: no limitations. Information obtained by: patient. HPI Narrative: 68yo M presenting with left ankle pain. Around 7pm was waterskiing, fell, left foot came out of skiboot. Not sure in what direction he fell. Able to walk after the event albeit with pain. Pain has increased over the interim. No numbness, tingling, or weakness. Denies pain elsewhere or other injury. Otherwise in his usual state of health. Related Data Home Medications ?Medication ?Instructions ?Recorded ?Confirmed multivitamin (Daily Multi-Vitamin 1 ea PO DAILY 07/31/13 11/29/23 tablet) cholecalciferol (vitamin D3) 125 125 mcg PO DAILY 10/31/20 11/29/23 mcg (5,000 unit) capsule glucosamine sulfate 2KCl 1,000 mg 1,000 mg PO BID 10/31/20 11/29/23 tablet (Glucosamine Relief) aspirin 81 mg tablet,delayed 81 mg PO DAILY 02/18/22 11/29/23 release (Roderick Low Dose Aspirin) metoprolol succinate 25 mg 12.5 mg (1/2 x 25 mg) PO DAILY #45 01/06/23 11/29/23 tablet,extended release 24 hr tabs atorvastatin 20 mg tablet 40 mg PO DAILY 03/31/23 11/29/23 fluoxetine 20 mg capsule 20 mg PO DAILY #90 caps 04/22/23 11/29/23 turmeric 400 mg capsule 1,000 mg PO DAILY 11/29/23 11/29/23 Previous Rx's ?Medication ?Instructions ?Recorded metoprolol succinate 25 mg 12.5 mg (1/2 x 25 mg) PO DAILY #45 01/06/23 tablet,extended release 24 hr tabs fluoxetine 20 mg capsule 20 mg PO DAILY #90 caps 04/22/23 Allergies Allergy/AdvReac Type Severity Reaction Status Date / Time No Known Allergies Allergy Verified 11/29/23 23:42 General Stated Complaint: GenMedical LYNDSAY: 3 Review of Systems Narrative: see HPI Exam Narrative Exam Narrative: General: Alert, well appearing, well nourished, in no acute distress. Head: Normocephalic, atraumatic Neck: Trachea midline, ?Neck supple. Cardiac: No cyanosis. Well pefused. Resp: No respiratory distress. Speaking in full sentences. . Abd: ?Non-distended, Extremities: ?No deformities.? LLE: Mild swelling to lateral aspect of ankle. Pain with active dorsiflexion and inversion. No pain with passive ROM. No bony tenderness at foot or ankle. Neurologic: GCS 15. ? Moves all extremities freely against gravity Course Vital Signs Vital signs: Vital Signs Temperature 36 C L 11/29/23 23:37 Pulse 71 11/29/23 23:37 Respiratory Rate 16 11/29/23 23:37 Blood Pressure 137/88 11/29/23 23:37 Pulse Oximetry 97 11/29/23 23:37 Temperature 36 C L 11/29/23 23:37 Temperature Source Tympanic 11/29/23 23:37 Pulse 71 11/29/23 23:37 Respiratory Rate 16 11/29/23 23:37 Respiratory Effort Normal, Non-Labored 11/29/23 23:45 Blood Pressure 137/88 11/29/23 23:37 Pulse Oximetry 97 11/29/23 23:37 Oxygen Delivery Method Room Air 11/29/23 23:37 Oxygen Flow Rate 0 11/29/23 23:37 Pain Level 5 11/29/23 23:37 Medical Decision Making 68yo M presenting with left ankle pain. Around 7pm was waterskiing, fell, left foot came out of skiboot. Able to walk after the event and currently, albeit with pain. No numbness, tingling, or weakness. Brisk capillary refill and good DP pulse on exam, sensation and strength intact. Not concerning for arterial or nerve injury; no indication for CT imaging. Will give tylenol here. Discussed with patient likely sprain; after shared decision making patient elected to purse XR. Plain film left ankle independently reviewed; no displaced fracture or dislocation on my view, agree with radiology read below which finds nondisplaced proximal 5th metatarsal fracture. Placed in ankle boot and given crutches; dedicated foot film obtained and independently reviewed, agree with radiology read below. Advised NWB, PCP followup, symptomatic treatment at home. Discharged home; discharge instructions and return precautions were reviewed with patient who verbalized understanding; all questions were answered and he is in full agreement with the plan. Imaging Data Radiologic Study: Imaging: X-Ray Radiologist's impression: Ankle: IMPRESSION: A nondisplaced fracture at the base of the 5th metatarsal. Foot: IMPRESSION: A nondisplaced fracture of the posterior tip of the 5th metatarsal. Quality:SDOH Health Related Social Needs: No Data to Display [facility] All Active Problems (Updated 11/30/23 @ 01:56 by Carolyne Davis MD) Metatarsal bone fracture (Acute) Cardiomyopathy, ischemic (Acute) 05/19/22 Cardiology ASCVD (arteriosclerotic cardiovascular disease) (Acute) 05/19/22 Cardiology Hyperlipidemia (Acute) History of non-ST elevation myocardial infarction (NSTEMI) (Acute) Screening for prostate cancer (Acute) Diverticula of colon (Acute) Encounter for routine history and physical examination (Acute 02/08/12) Kidney stones, calcium oxalate (Acute) Lau's neuroma of right foot (Acute) Routine medical exam (Acute) Colon cancer screening (Acute) Screening, lipid (Acute) Dry skin (Acute) Sensorineural hearing loss (SNHL) of both ears (Chronic 01/08/16) [place], ENT Other and unspecified hyperlipidemia (Chronic 04/03/99) 6% risk, goal LDL <130, rx if >190: lifestyle Anxiety state, unspecified (Chronic 11/16/06) Generalized Anxiety Disorder; fluoxetine effective Medical History (Updated 11/30/23 @ 01:56 by Carolyne Davis MD) Telangiectasia 07/06/23 [facility], [facility] COVID (~04/2023) Multiple benign nevi 10/01/22 [facility] Keratosis 10/01/22 [facility], multiple area AK and SK Pruritic condition 10/01/22 [facility] Nasal septal defect surgery Epicondylitis, medial humeral Left Surgical History Normal colonoscopy (~11/2020) repair fx right small finger fx (03/26/16) Family History Sister Bipolar 1 disorder Sister Asthma Sister Alcohol abuse in recovery RH 06/10/20 Father , age 56 Cancer Social History Smoking/Tobacco Use Status: Never Second Hand Exposure: No Smoking risk assessment performed?: Yes Alcohol Intake: never Drug use: Never Substance use type: does not use Counseling given: No Adopted: No Caregiver/Support person: No Foster care: No Household members: spouse Housing: house Number of Children: 2 number of grandchildren: 0 Communication Needs: Corrective Lenses Education Level: master's degree Do you need help understanding health information?: Never current occupation: Retired Pets and animals: Yes (2) Pets and animals: cat(s) Sexually active: Yes Do you think of yourself as: straight/heterosexual Current gender identity: male What is your relationship status?: How often do you talk on the phone with friends or family?: three or more times per week How often do you get together with friends or relatives?: once per week How often do you attend buddhist or samaritan services?: decline to answer Do you belong to any clubs or organized social groups?: no Panel score (0-1 are the most socially isolated patients): 2 What type of physical activity do you participate in: bicycling, weight lifting, other Details: skiing and running Duration: 30-45 minutes/day Frequency: 5-6 times per week Special shannan needs: No Seatbelt use: always Helmet use: Yes Helmet use: always Drive intox or ride w/intox 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
--- NOTE | 2023-11-30 01:37 | DI.VRAD_ITS ---
PROCEDURE INFORMATION: Exam: XR Left Ankle Exam date and time: 11/30/2023 12:50 AM Age: 68 years old Clinical indication: Patient HX: Left ankle pain S/P fall TECHNIQUE: Imaging protocol: Radiologic exam of the left ankle. Views: 3 or more views. COMPARISON: No relevant prior studies available. FINDINGS: Bones/joints: The alignment of the joints is anatomic and the ankle mortise is maintained. There is a nondisplaced fracture at the base of the 5th metatarsal. Soft tissues: No radiopaque foreign body is seen. There is mild soft tissue swelling. IMPRESSION: A nondisplaced fracture at the base of the 5th metatarsal. Dictated and Authenticated by: Arnoldo Griggs MD. Ordering:PATO Barfield MD
--- NOTE | 2023-11-30 01:45 | DI.RAD_ITS ---
Exam(s) XR FOOT LT COMPLETE EXAM: XR FOOT LT COMPLETE CLINICAL HISTORY: 5th metatarsal fx. TECHNIQUE: 2D digital imaging was performed. COMPARISON: CR,XR XR ANKLE LT COMPLETE from 11/30/2023 FINDINGS: 3 views There is a nondisplaced transverse fracture at the base of the 5th metatarsal. No other fractures id entified. Lisfranc joint appears intact. There are significant degenerative changes in the great to e metatarsophalangeal joint. IMPRESSION: Nondisplaced transverse fracture at the base of the 5th metatarsal. DATA REPOSITORY: RADIATION DOSE DELIVERED:
--- NOTE | 2023-11-30 02:58 | DI.VRAD_ITS ---
PROCEDURE INFORMATION: Exam: XR Left Foot Exam date and time: 11/30/2023 2:15 AM Age: 68 years old Clinical indication: Pain; Foot; Left; Patient HX: 5th metatarsal FX TECHNIQUE: Imaging protocol: Radiologic exam of the left foot. Views: 3 or more views. COMPARISON: CR XR ANKLE LT COMPLETE 30/11/2023 00:50 FINDINGS: Bones/joints: The alignment of the joints is anatomic and the joint spaces are maintained. There is a nondisplaced fracture of the posterior tip of the 5th metatarsal. Soft tissues: No radiopaque foreign bodies are identified. There are no soft tissue calcifications. IMPRESSION: A nondisplaced fracture of the posterior tip of the 5th metatarsal. Dictated and Authenticated by: Arnoldo Griggs MD. Ordering:PATO Barfield MD
[2023-11-30 03:10] VITALS: BP 120/74; PULSE 74; RESP 16; RESP 18; TEMP 36.4; TEMP 36.7; O2SAT 98
--- NOTE | 2024-01-26 12:35 | NUR.NOTE ---
Accessed Pt chart to print discharge summary for the [facility] paperwork
== END 2023-11-30 03:09 | disposition home or self-care (01) ==
PROVIDERS: Emergency Provider Student in an Organized Health Care Education/Training Program; PCP Nurse Practitioner
DX: S92.355A Nondisplaced fracture of fifth metatarsal bone, left foot, initial encounter for closed fracture (principal); I25.2 Old myocardial infarction; Z79.82 Long term (current) use of aspirin; W18.39XA Other fall on same level, initial encounter; Y93.17 Activity, water skiing and wake boarding; Y92.838 Other recreation area as the place of occurrence of the external cause
CPT/HCPCS: 99283; 73610; 73630

== ENCOUNTER 2024-01-23 16:31 | Outpatient (CLI) | payer MEDICARE, SELFPAY ==
--- NOTE | 2024-01-23 16:15 | DI.RAD_ITS ---
Exam(s) XR SHOULDER RT COMPLETE 2+V EXAM: XR SHOULDER RT COMPLETE 2+V CLINICAL HISTORY: M25.511 right shoulder pain for 8 weeks. TECHNIQUE: 2D digital imaging was performed of the right shoulder. Images were obtained. AP, Gra lucretia, Y-view and axillary views were obtained. COMPARISON: CR XR SHOULDER RT COMPLETE 2+V from 06/16/2021 FINDINGS: BONES: No acute fracture is present. No bony destructive lesion is seen. JOINTS: No dislocation present. Mild degenerative changes are seen at the acromioclavicular joint. T he glenohumeral joint is unremarkable. SOFT TISSUE: The patient is status post CABG. IMPRESSION: Stable mild degenerative changes at the acromioclavicular joint. DATA REPOSITORY: RADIATION DOSE DELIVERED:
== END 2024-01-23 16:51 ==
LOC: DI 16:31
PROVIDERS: PCP Nurse Practitioner; Visit Provider Nurse Practitioner
DX: M25.511 Pain in right shoulder (principal)
CPT/HCPCS: 73030

== ENCOUNTER 2024-06-29 00:45 | Outpatient (CLI) | payer MEDICARE, SELFPAY ==
--- NOTE | 2024-06-29 07:30 | DI.MRI_ITS ---
Exam(s) MR UPPER JOINT RT WO EXAM: MR UPPER JOINT RT WO CLINICAL HISTORY: R shoulder pain, s/p injury 11/2023,m25.511 TECHNIQUE: Multiplanar multisequence MRI of the shoulder was performed. COMPARISON: CR XR SHOULDER RT COMPLETE 2+V from 01/23/2024 FINDINGS: MARROW:There is no evidence of fracture, Hill-Sachs deformity, nor ominous osseous lesions. GLENOHUMERAL JOINT: No joint effusion nor obvious loose intra-articular bodies. No chondral defects. No osteophytes. No degenerative subarticular cysts in the osseous glenoid. Are two small degenerat yvette subarticular cysts in the anterior humeral head adjacent to the lesser tuberosity.. ROTATOR CUFF MECHANISM: AC JOINT/ACROMIUM: There are only minimal degenerative changes in the AC joint. There is no enthesop hyte at the level of the coracoacromial ligament.. There is no evidence of os acromiale. Supraspinatus: There is area of signal abnormality in the distal supraspinatus tendon at the foot pad insertion aspect which has the appearance of full-thickness tear just above the greater tuberosity. The AP measurement of the tear at this level is 6 mm. There is no significant retraction of the mus culotendinous junction. No muscle atrophy. Infraspinatus: Intact. No evidence of tear nor muscle atrophy. Teres Minor: Intact. No evidence of tear nor muscle atrophy. Subscapularis/anterior cuff: Mild signal abnormality at the insertional aspect just anterior to the l deon tuberosity but no full-thickness tear. BICEPS TENDON: Exhibits normal position within the intertubercular groove. No evidence of tear. No tenosynovitis. LABRUM: No evidence of paralabral cysts. There is no abnormal signal in the superior labrum posterio r to the biceps insertion site. The posterior labrum also appears intact. There is no tear of the a nterior labrum and the inferior labrum also appears intact as does the inferior glenohumeral ligament . There is no prominent fluid nor loose body within the inferior recess. QUADRILATERAL SPACE: No evidence of mass in the region of the axillary nerve and dorsal circumflex hu meral vessels. Visualized triceps muscle at this level appears unremarkable. IMPRESSION: 1. Findings are consistent with an area of full-thickness tear at the foot pad insertional aspect of the supraspinatus tendon. There is no significant retraction of the musculotendinous junction nor mu scle atrophy. There is no evidence of significant tearing in the infraspinatus and teres minor. Ant eriorly there are milder findings in the insertional aspect of the subscapularis but no full-thicknes s tear. 2. No evidence of labral tears nor paralabral cyst. No obvious tear of the biceps tendon although th ere is a small amount of fluid within the biceps tendon sheath at the level of the intertubercular gr oove. 3. Minimal degenerative changes. There are 2 small degenerative subarticular cysts in the anterior h umeral head at the level of the lesser tuberosity. There are no loose intra-articular bodies. No si gnificant glenohumeral joint effusion. DATA REPOSITORY:
== END 2024-06-29 01:05 ==
LOC: DI 00:45
PROVIDERS: PCP Nurse Practitioner; Visit Provider Nurse Practitioner
DX: M75.121 Complete rotator cuff tear or rupture of right shoulder, not specified as traumatic (principal)
CPT/HCPCS: 73221

== ENCOUNTER 2024-07-03 15:52 | Outpatient (CLI) | payer MEDICARE, SELFPAY ==
[2024-07-03 10:13] LABS: Calculated LDL 86 mg/dL (<100); Cholesterol 170 mg/dL (<200); HDL Cholesterol 60 mg/dL (>or=40); Triglyceride 123 mg/dL (<150)
== END 2024-07-03 15:53 | disposition home or self-care (01) ==
LOC: LBO 15:53
PROVIDERS: PCP Nurse Practitioner; Visit Provider Nurse Practitioner
DX: E78.5 Hyperlipidemia, unspecified (principal)
CPT/HCPCS: 36415; 80061

== ENCOUNTER → 2024-07-25 07:53 | Outpatient (BNVA) | payer MEDICARE, SELFPAY | PROVIDERS: PCP Nurse Practitioner; Referring Provider Nurse Practitioner; Visit Provider Student in an Organized Health Care Education/Training Program | DX: M75.101 Unspecified rotator cuff tear or rupture of right shoulder, not specified as traumatic (principal); V91.87XA Other injury due to other accident to water-skis, initial encounter | CPT/HCPCS: 99214 ==

== ENCOUNTER → 2024-10-17 08:05 | Outpatient (BNVA) | payer MEDICARE, SELFPAY | PROVIDERS: PCP Nurse Practitioner; Referring Provider Nurse Practitioner; Visit Provider Student in an Organized Health Care Education/Training Program | DX: M75.101 Unspecified rotator cuff tear or rupture of right shoulder, not specified as traumatic (principal) | CPT/HCPCS: 99213 ==